=== PATIENT | male | born 1945 | race Caucasian/White ===

== ENCOUNTER 2020-07-17 09:31 | Inpatient (IN) | payer MEDICARE, SELFPAY ==
--- NOTE | ~2020-07-17 | CT_ITS ---
EXAMINATION: CT ABDOMEN AND PELVIS WITHOUT CONTRAST CLINICAL INFORMATION: GI bleeding. Evaluate for colitis. COMPARISON: Previous CT of the abdomen and pelvis June 2006 TECHNIQUE: Multidetector volumetric imaging was performed from the superior aspect of the liver through the pubic symphysis. Sagittal and coronal reformatted images were obtained on the technologist's workstation. This CT examination was performed using dose optimization techniques as appropriate, variously including the following: *Automated exposure control *Adjustment of mA and/or kV according to patient size (this includes techniques or standardized protocols for targeted exams where dose is matched to indication/reason for exam; i.e. extremities or head) *Use of iterative reconstruction technique DLP: 672 mGy-cm FINDINGS: LUNG BASES: The visualized lung bases are clear. There is bilateral pleural calcification, left greater than right. LIVER, GALLBLADDER, AND BILIARY TREE: There are small calcifications seen in the liver. The liver is otherwise unremarkable. There are gallstones in the gallbladder. There is no biliary duct dilatation. PANCREAS: Unremarkable. SPLEEN: There are small calcifications in the spleen ADRENAL GLANDS: Unremarkable. KIDNEYS AND URETERS: There is bilateral renal cortical thinning. The right kidney is smaller than the left. There is no hydronephrosis. There is mild dilatation of both ureters. BLADDER: The bladder is very distended. There bladder wall appears trabeculated. Findings are suggestive of bladder outlet obstruction. GASTROINTESTINAL TRACT: There is very mild diverticulosis of the colon. No evidence of colitis or diverticulitis is seen. Small and large bowel is otherwise normal. The appendix is normal. The stomach is normal. ABDOMINAL WALL: No significant hernia is appreciated. LYMPH NODES: Normal. VASCULAR: There is evidence of atherosclerotic disease. No aneurysm is seen. PELVIC VISCERA: The prostate gland does not appear enlarged. There is a low-attenuation seen centrally in the prostate gland questionable for TURP defect. OSSEOUS STRUCTURES: There are old T11 and L1 vertebral body compression fractures. There are degenerative changes of the spine CT/CT abdomen pelvis wo con IMPRESSION: Mild diverticulosis of the colon. No evidence of diverticulitis or colitis. Very distended bladder with trabeculated bladder wall suggestive of bladder outlet obstruction. Bilateral renal cortical thinning. Small right kidney. Small calcifications in the liver and spleen probably related to old granulomatous disease. Gallstones.
--- NOTE | ~2020-07-17 | XR_ITS ---
EXAMINATION: XR CHEST CLINICAL INFORMATION: GI bleeding COMPARISON: None TECHNIQUE: Frontal view of the chest was obtained. FINDINGS: No significant abnormality is noted involving the heart, lungs, mediastinum, bony thorax or soft tissues. XR/XR chest 1V IMPRESSION: Unremarkable examination.
[2020-07-17 09:42] VITALS: BP 121/64; BP 140/76; PULSE 66; PULSE 67; RESP 18; TEMP 36.7; O2SAT 100; O2SAT 98; BMI 27.9
--- NOTE | 2020-07-17 10:13 | ED_ITS ---
HPI - GI Bleed General Chief complaint: GI Bleed Stated complaint: ?gi bleed Time Seen by Provider: 07/17/20 10:05 Source: patient and EMS Mode of arrival: EMS Limitations: no limitations History of Present Illness HPI Narrative: 75-year-old male came in for evaluation of black stool. Black stool for the past 2 days, feeling generalized weakness, history of acid reflux. Patient is not taking any anticoagulation, patient otherwise declined chest pain/abdominal pain/nausea/or vomiting. Patient had history of GI bleeding in the past he was he was on aspirin. Related Data Allergies Allergy/AdvReac Type Severity Reaction Status Date / Time aspirin [ASPIRIN] Allergy Unknown THINS Unverified 12/03/19 16:32 BLOOD TOO MUCH Review of Systems Review of Systems: All other systems are reviewed and are negative Constitutional: Reports as per HPI and Reports no additional constitutional complaints Eyes: Reports as per HPI and Reports no additional eye complaints Reports system reviewed and no additional complaints, except as documented Cardiovascular: Reports as per HPI and Reports no additional cardiovascular complaints Respiratory: Reports as per HPI and Reports no additional respiratory complaints Gastrointestinal: Reports as per HPI and Reports no additional gastrointestinal complaints Genitourinary: Reports no additional female genitourinary complaints Musculoskeletal: Reports no additional musculoskeletal complaints Skin/Breast: Reports system reviewed and no additional complaints, except as docu Psychiatric: Reports no additional psychiatric complaints Endocrine: Reports no additional endocrine complaints Hematologic/Lymphatic: Reports no additional hematologic/lymphatic complaints Allergic/Immunologic: Reports no additional allergic/immunologic complaints Reports system reviewed and no additional complaints, except as documented and Reports Abnormal speech present [facility] Past Medical History Medical History (Updated 07/17/20 @ 12:52 by Leyda Santos MD) BPH (benign prostatic hyperplasia) CKD (chronic kidney disease), stage IV GERD (gastroesophageal reflux disease) HTN (hypertension) Rosacea Social History Social History (Updated 07/17/20 @ 12:27 by David Dale MD) Alcohol intake: current Smoking Status: Former smoker Smoked in Last 30 Days: No Use of substances other than those prescribed or required for medical reasons: No Advance Directives: Yes Advance Directives Information Provided: No Advance Directives on File: No Physical Exam Vital Signs: Vital Signs: Last Vital Signs Temp 98.0 F 07/17/20 09:42 Pulse 66 07/17/20 09:42 Resp 18 07/17/20 09:42 BP 121/64 07/17/20 09:42 Pulse Ox 98 07/17/20 09:42 Body Mass Index 27.9 Vital signs have been reviewed as appeared to be correct. Blood pressure normal. Heart rate normal. Respiration rate normal. Temperature normal. Oxygen saturation normal. Appearance: Alert. Oriented X3. No acute distress. Head: Normal external exam. Normocephalic. Atraumatic. No Quinones signs noted. No raccoon eyes noted Eyes: PERRLA. EOMI. Conjunctiva and sclera normal. Eyelids normal. ENT: TM's Normal. Pharynx normal. Uvula midline. Moist mucous membranes. No trismus noted. No drooling noted. No muffled voice noted. Neck: Normal inspection. Neck supple. FROM. No adenopathy. Thyroid Normal. No meningeal signs. No neck mass noted. CVS: Normal heart rate and rhythm. Heart sound normal. No murmurs noted. Pulses normal throughout. Respiratory: No respiratory distress. Painless inspiration. Breath sounds normal. No wheezes/rales/rhonchi noted. Chest nontender. No accessory muscle usage noted or decreased air movement noted. Abdomen: Soft and nontender. Bowel sounds normal in all 4 quadrants. No distention noted. No organomegaly noted. No visible injury noted. Rectal exam:black tarry stool. Back: No CVA tenderness. Full range of motion noted. Skin: Skin warm and dry. Normal skin color. Normal skin turgor. No rashes/lesions/lacerations noted. Extremities: No lower extremity edema. Extremities exhibit normal range of motion. Extremities nontender. Neuro: Oriented X 3. No motor deficit. No sensory deficit. Reflexes normal. Course Course Course Narrative: Assessment and plan. 75-year-old male with GI bleed /melena, CT was unremarkable except for dilated bladder, patient was able to void on his own with no complain of urine retention. Slight anemia. Will admit the patient for further GI evaluation. MDM - GI Bleed Lab Data Attestation: I reviewed the patient's lab results. Result diagrams: 07/17/20 10:27 07/17/20 10:27 Labs: Lab Results 07/17/20 07/17/20 07/17/20 Range/Units 10:27 10:27 10:27 WBC 8.1 (4.8-10.8) X10*3/uL RBC 3.07 L (4.60-5.80) X10*6/uL Hgb 10.0 L (14.0-18.0) g/dl Hct 29.3 L (42-52) % MCV 95.4 (80-98) fL MCH 32.6 (27.0-33.0) pg MCHC 34.1 (31.0-36.0) g/dl RDW 14.7 (11.0-16.0) % Plt Count 158 L (160-400) X10*3/uL MPV 11.2 (9.4-12.4) fL Immature Gran % (Auto) 1.8 H (0.0-0.4) % Neut % (Auto) 65.9 (45-73) % Lymph % (Auto) 20.7 (20-40) % [place] % (Auto) 9.2 (2-11) % Eos % (Auto) 2.0 (0-4) % Baso % (Auto) 0.4 (0-2) % Lymph # (Auto) 1.7 (1.2-4.9) X10*3/uL [place] # (Auto) 0.8 (0.1-1.2) X10*3/uL Eos # (Auto) 0.2 (0.0-0.4) X10*3/uL Baso # (Auto) 0.0 (0.0-0.2) X10*3/uL Abs Immat Gran (auto) 0.15 H (0.00-0.03) X10*3/uL Absolute Neuts (auto) 5.4 (2.0-8.3) X10*3/uL Absolute Nucleated RBC 0.000 (0.0-0.012) X10*3/uL Nucleated RBC % (auto) 0.0 (0.0-0.2) /100WBC Sodium 139 (135-145) mmol/L Potassium 4.2 (3.3-5.1) mmol/L Chloride 106 (96-108) mmol/L Carbon Dioxide 28 (22-29) mmol/L Anion Gap 9 L (12-20) BUN 49 H (9-16) mg/dL Creatinine 2.15 H (0.5-1.4) mg/dL Estim Creat Clear Calc 32.2 Estimated GFR 30 Random Glucose 123 H (60-115) mg/dL Calcium 9.2 (8.4-10.2) mg/dL Total Bilirubin 0.5 (0.0-1.0) mg/dL Direct Bilirubin 0.2 (0.0-0.5) mg/dL AST 9 (5-37) U/L ALT 11 (0-40) U/L Alkaline Phosphatase 30 L (39-117) U/L Troponin I High Sens (<3.5-35.0) ng/L B-Natriuretic Peptide (<100) pg/mL Total Protein 4.4 L (6.5-8.0) g/dL Albumin 3.0 L (3.5-5.0) g/dL Lipase 20 (8-78) U/L Urine Color Urine Appearance Urine pH (5.0-8.0) Ur Specific [place] (1.005-1.025) Urine Protein (NEG-TRACE) MG/DL Urine Glucose (UA) (NEG) MG/DL Urine Ketones (NEG) MG/DL Urine Blood (NEG) Urine Nitrite (NEG) Ur Leukocyte Esterase (NEG) Stool Occult Blood (NEGATIVE) COVID-19 (JULIAN) (Negative) COVID-19 Clin Com 07/17/20 07/17/20 07/17/20 Range/Units 10:27 10:27 10:27 WBC (4.8-10.8) X10*3/uL RBC (4.60-5.80) X10*6/uL Hgb (14.0-18.0) g/dl Hct (42-52) % MCV (80-98) fL MCH (27.0-33.0) pg MCHC (31.0-36.0) g/dl RDW (11.0-16.0) % Plt Count (160-400) X10*3/uL MPV (9.4-12.4) fL Immature Gran % (Auto) (0.0-0.4) % Neut % (Auto) (45-73) % Lymph % (Auto) (20-40) % [place] % (Auto) (2-11) % Eos % (Auto) (0-4) % Baso % (Auto) (0-2) % Lymph # (Auto) (1.2-4.9) X10*3/uL [place] # (Auto) (0.1-1.2) X10*3/uL Eos # (Auto) (0.0-0.4) X10*3/uL Baso # (Auto) (0.0-0.2) X10*3/uL Abs Immat Gran (auto) (0.00-0.03) X10*3/uL Absolute Neuts (auto) (2.0-8.3) X10*3/uL Absolute Nucleated RBC (0.0-0.012) X10*3/uL Nucleated RBC % (auto) (0.0-0.2) /100WBC Sodium (135-145) mmol/L Potassium (3.3-5.1) mmol/L Chloride (96-108) mmol/L Carbon Dioxide (22-29) mmol/L Anion Gap (12-20) BUN (9-16) mg/dL Creatinine (0.5-1.4) mg/dL Estim Creat Clear Calc Estimated GFR Random Glucose (60-115) mg/dL Calcium (8.4-10.2) mg/dL Total Bilirubin (0.0-1.0) mg/dL Direct Bilirubin (0.0-0.5) mg/dL AST (5-37) U/L ALT (0-40) U/L Alkaline Phosphatase (39-117) U/L Troponin I High Sens 41.6 H (<3.5-35.0) ng/L B-Natriuretic Peptide 369 H (<100) pg/mL Total Protein (6.5-8.0) g/dL Albumin (3.5-5.0) g/dL Lipase (8-78) U/L Urine Color Urine Appearance Urine pH (5.0-8.0) Ur Specific [place] (1.005-1.025) Urine Protein (NEG-TRACE) MG/DL Urine Glucose (UA) (NEG) MG/DL Urine Ketones (NEG) MG/DL Urine Blood (NEG) Urine Nitrite (NEG) Ur Leukocyte Esterase (NEG) Stool Occult Blood POSITIVE (NEGATIVE) COVID-19 (JULIAN) Negative (Negative) COVID-19 Clin Com See Note 07/17/20 Range/Units 11:54 WBC (4.8-10.8) X10*3/uL RBC (4.60-5.80) X10*6/uL Hgb (14.0-18.0) g/dl Hct (42-52) % MCV (80-98) fL MCH (27.0-33.0) pg MCHC (31.0-36.0) g/dl RDW (11.0-16.0) % Plt Count (160-400) X10*3/uL MPV (9.4-12.4) fL Immature Gran % (Auto) (0.0-0.4) % Neut % (Auto) (45-73) % Lymph % (Auto) (20-40) % [place] % (Auto) (2-11) % Eos % (Auto) (0-4) % Baso % (Auto) (0-2) % Lymph # (Auto) (1.2-4.9) X10*3/uL [place] # (Auto) (0.1-1.2) X10*3/uL Eos # (Auto) (0.0-0.4) X10*3/uL Baso # (Auto) (0.0-0.2) X10*3/uL Abs Immat Gran (auto) (0.00-0.03) X10*3/uL Absolute Neuts (auto) (2.0-8.3) X10*3/uL Absolute Nucleated RBC (0.0-0.012) X10*3/uL Nucleated RBC % (auto) (0.0-0.2) /100WBC Sodium (135-145) mmol/L Potassium (3.3-5.1) mmol/L Chloride (96-108) mmol/L Carbon Dioxide (22-29) mmol/L Anion Gap (12-20) BUN (9-16) mg/dL Creatinine (0.5-1.4) mg/dL Estim Creat Clear Calc Estimated GFR Random Glucose (60-115) mg/dL Calcium (8.4-10.2) mg/dL Total Bilirubin (0.0-1.0) mg/dL Direct Bilirubin (0.0-0.5) mg/dL AST (5-37) U/L ALT (0-40) U/L Alkaline Phosphatase (39-117) U/L Troponin I High Sens (<3.5-35.0) ng/L B-Natriuretic Peptide (<100) pg/mL Total Protein (6.5-8.0) g/dL Albumin (3.5-5.0) g/dL Lipase (8-78) U/L Urine Color YELLOW Urine Appearance CLEAR Urine pH 7.5 (5.0-8.0) Ur Specific [place] 1.015 (1.005-1.025) Urine Protein TRACE (NEG-TRACE) MG/DL Urine Glucose (UA) NEG (NEG) MG/DL Urine Ketones NEG (NEG) MG/DL Urine Blood NEG (NEG) Urine Nitrite NEG (NEG) Ur Leukocyte Esterase NEG (NEG) Stool Occult Blood (NEGATIVE) COVID-19 (JULIAN) (Negative) COVID-19 Clin Com Imaging Data Chest x-ray: My impression: Unremarkable CT scan - abdomen: Radiologist's impression: Mild diverticulosis of the colon. No evidence of diverticulitis or colitis. Very distended bladder with trabeculated bladder wall suggestive of bladder outlet obstruction. Bilateral renal cortical thinning. Small right kidney. Small calcifications in the liver and spleen probably related to old granulomatous disease. Gallstones. Discharge Plan Discharge Clinical Impression: Melena Patient Disposition: Admitted As Inpatient
[2020-07-17] MEDS: 0.9 % Sodium Chloride 1,000 ML 999 ML IVCONT (10:31)
[2020-07-17 10:33] LABS: MANUAL DIFF FLAG NO
[2020-07-17 10:35] LABS: OBS Int Ctl Valid YES; OBS1 POSITIVE (NEGATIVE)
[2020-07-17 10:38] LABS: Basophils Percent Auto 0.4 % (0-2); Eosinophils Absolute Auto 0.2 X10*3/uL (0.0-0.4); Hematocrit 29.3 % (42-52); Imm Gran Abs Auto 0.15 X10*3/uL (0.00-0.03); Imm Gran Pct Auto 1.8 % (0.0-0.4); Lymphocytes Absolute Auto 1.7 X10*3/uL (1.2-4.9); Lymphocytes Percent Auto 20.7 % (20-40); Mean Corpuscular HGB Conc 34.1 g/dl (31.0-36.0); Mean Corpuscular Hemoglobin 32.6 pg (27.0-33.0); Mean Corpuscular Volume 95.4 fL (80-98); Mean Platelet Volume 11.2 fL (9.4-12.4); Monocytes Absolute Auto 0.8 X10*3/uL (0.1-1.2); Monocytes Percent Auto 9.2 % (2-11); Neutrophils Absolute Auto 5.4 X10*3/uL (2.0-8.3); Neutrophils Percent Auto 65.9 % (45-73); Platelet Count 158 X10*3/uL (160-400); Red Blood Count 3.07 X10*6/uL (4.60-5.80); Red Cell Distribution Width 14.7 % (11.0-16.0); White Blood Count 8.1 X10*3/uL (4.8-10.8)
[2020-07-17 10:54] LABS: COVID-19 Test Negative (Negative)
[2020-07-17] MEDS: Pantoprazole Sodium 40 MG/10 ML VIAL IVPUSH ×2 (10:56→17:25)
[2020-07-17 11:01] LABS: Lipase 20 U/L (8-78)
[2020-07-17 11:03] LABS: Alanine Aminotransferase 11 U/L (0-40); Alkaline Phosphatase 30 U/L (39-117); Aspartate Amino Transferase 9 U/L (5-37); Bilirubin Direct 0.2 mg/dL (0.0-0.5); Bilirubin Total 0.5 mg/dL (0.0-1.0); Total Protein 4.4 g/dL (6.5-8.0)
[2020-07-17 11:13] LABS: B Type Natriuretic Peptide 369 pg/mL (<100); Troponin-I High Sensitivity 41.6 ng/L (<3.5-35.0)
[2020-07-17 12:00] LABS: Glucose Urine UA NEG (NEG); Leukocyte Esterase Urine NEG (NEG); Nitrite Urine NEG (NEG); PH 7.5 (5.0-8.0); Specific Gravity - Urine 1.015 (1.005-1.025); Urine Blood NEG (NEG); Urine Ketones NEG (NEG); Urine Protein TRACE MG/DL (NEG-TRACE)
[2020-07-17 12:01] LABS: Appearance Urine CLEAR; Color Urine YELLOW
[2020-07-17 12:12] LABS: Anion Gap 9 (12-20); Blood Urea Nitrogen 49 mg/dL (9-16); Calcium 9.2 mg/dL (8.4-10.2); Carbon Dioxide 28 mmol/L (22-29); Chloride 106 mmol/L (96-108); Creatinine Clr Calc Pharmacy 32.2; Estimated Glomerular Filt Rate 30; Glucose Random 123 mg/dL (60-115); Potassium 4.2 mmol/L (3.3-5.1); Sodium 139 mmol/L (135-145)
--- NOTE | 2020-07-17 12:25 | PM.EVENT ---
Event Note Date of Service: 07/17/20 Event Note: 75M presented with melena for several days melena likely upper gi bleed iv ppi gi eval CKD IV stable HTN hold antihypertensives for now BPH, urinary retention on CT check PVR continue terazosin
--- NOTE | 2020-07-17 14:18 | PM.IMHP ---
History of Present Illness Date of Service: 07/17/20 Chief Complaint: Black stool 75-year-old man presenting to the ER with complaints of black stool he reports on that he noticed in the toilet that his stool was black. He reports a history of gastric ulcer in the past. Denies taking large doses of NSAIDs. He is not on any anticoagulation. He developed some flank pain and decided to come to the ER to be evaluated. Denies any history of abdominal pain, nausea, vomiting, diarrhea. He reports only drinking about 1 beer a day if that. His initial hemoglobin and hematocrit was 10.00/29.3, creatinine 2.15 with history of chronic kidney disease, initial troponin 41.6 with no complaints of chest pain, BNP 369, stool occult was positive, COVID-[address] showed mild diverticulosis with no evidence of diverticulitis or colitis. He did have a very distended bladder suggestive of a bladder outlet obstruction however he urinated 600ml in the ED. he was given IV Protonix and 1 L of IV fluid in the ER. He will be admitted for further management treatment of acute upper GI bleed. Review of Systems Review of Systems: Denies any recent fever chills or decrease in appetite respiratory denies any shortness of breath coverage production cardiovascular is adjustment of any PND or edema gastrointestinal denies any dysphagia abdominal pain nausea vomiting or diarrhea genitourinary denies any dysuria frequency or hematuria musculoskeletal denies any joint pain or swelling neuropsych denies any weakness or seizures all other systems reviewed are negative [facility] Medical History (Updated 07/17/20 @ 12:53 by Leyda Santos MD) BPH (benign prostatic hyperplasia) CKD (chronic kidney disease), stage IV GERD (gastroesophageal reflux disease) HTN (hypertension) Rosacea Social History (Updated 07/17/20 @ 12:27 by David Dale MD) Alcohol intake: current Smoking Status: Former smoker Smoked in Last 30 Days: No Use of substances other than those prescribed or required for medical reasons: No Advance Directives: Yes Advance Directives Information Provided: No Advance Directives on File: No Meds Allergies Allergy/AdvReac Type Severity Reaction Status Date / Time aspirin [ASPIRIN] Allergy Unknown THINS Unverified 12/03/19 16:32 BLOOD TOO MUCH Active Medications: Current Medications Generic Name Dose Route Start Last Admin Trade Name Freq PRN Reason Stop Dose Admin Acetaminophen 650 mg 05/02/21 13:54 Acetaminophen 325 Mg Tablet PO Q6H PRN Pain, Mild (Pain Scale 1-3) Metoprolol Tartrate 50 mg 07/17/20 21:00 Metoprolol Tartrate 100 Mg Tablet PO BEDTIME [facility] Protocol Metoprolol Tartrate 100 mg 07/18/20 09:00 Metoprolol Tartrate 100 Mg Tablet PO DAILY [facility] Protocol Non-Formulary Medication 2 mg 07/18/20 09:00 Terazosin PO DAILY [facility] Ondansetron HCl 4 mg 07/17/20 13:54 Ondansetron Hcl 4 Mg/2 Ml Vial IVPUSH Q8H PRN Nausea and Vomiting Pantoprazole Sodium 40 mg 07/17/20 16:30 Pantoprazole Sodium 40 Mg/10 Ml Vial IVPUSH [id number] [facility] Pharmacy Consult 1 each 07/17/20 10:05 Consult Rx Perform Med Rec MISCELLANE ONCE PRN Consult order Sodium Chloride 3 ml 07/17/20 16:00 0.9 % Sodium Chloride Flush 3 Ml Syringe IVFLUSH QSHIFT [facility] Home Medications Medication Instructions Recorded Confirmed Last Taken Type amlodipine 1 tab PO DAILY 07/17/20 07/17/20 Unknown History lisinopril 1 tab PO DAILY 07/17/20 07/17/20 Unknown History metoprolol tartrate 50 mg PO BEDTIME 07/17/20 07/17/20 Unknown History metoprolol tartrate 100 mg PO DAILY 07/17/20 07/17/20 Unknown History terazosin 2 mg PO DAILY 07/17/20 07/17/20 Unknown History Physical Exam Vital Signs and Narrative: Vital Signs: Last Vital Signs Temp 98.0 F 07/17/20 09:42 Pulse 66 07/17/20 09:42 Resp 18 07/17/20 09:42 BP 121/64 07/17/20 09:42 Pulse Ox 98 07/17/20 09:42 Body Mass Index 27.9 Appearing in no acute distress head is normocephalic atraumatic eyes pupils are PERRLA sclera is anicteric mouth throat mucous membranes are intact and moist neck is supple no lymphadenopathy, no JVD noted lung sounds are clear to auscultation heart regular rate rhythm, clear S1, S2 positive bowel sounds, abdomen is soft, nontender neuro patient is alert x3, no focal deficits Results Labs CBC and Chem 7: 07/17/20 17:05 07/17/20 10:27 Labs: Laboratory Results - last 24 hr 07/17/20 07/17/20 07/17/20 10:27 10:27 10:27 MCV 95.4 MCH 32.6 MCHC 34.1 RDW 14.7 Plt Count 158 L MPV 11.2 Immature Gran % (Auto) 1.8 H Neut % (Auto) 65.9 Lymph % (Auto) 20.7 [place] % (Auto) 9.2 Eos % (Auto) 2.0 Baso % (Auto) 0.4 Lymph # (Auto) 1.7 [place] # (Auto) 0.8 Eos # (Auto) 0.2 Baso # (Auto) 0.0 Abs Immat Gran (auto) 0.15 H Absolute Neuts (auto) 5.4 Absolute Nucleated RBC 0.000 Nucleated RBC % (auto) 0.0 Anion Gap 9 L Estim Creat Clear Calc 32.2 Estimated GFR 30 Random Glucose 123 H Calcium 9.2 Total Bilirubin 0.5 Direct Bilirubin 0.2 AST 9 ALT 11 Alkaline Phosphatase 30 L Troponin I High Sens B-Natriuretic Peptide Total Protein 4.4 L Albumin 3.0 L Lipase 20 Urine Color Urine Appearance Urine pH Ur Specific [place] Urine Protein Urine Glucose (UA) Urine Ketones Urine Blood Urine Nitrite Ur Leukocyte Esterase Stool Occult Blood COVID-19 (JULIAN) COVID-[employer] 07/17/20 07/17/20 07/17/20 10:27 10:27 10:27 MCV MCH MCHC RDW Plt Count MPV Immature Gran % (Auto) Neut % (Auto) Lymph % (Auto) [place] % (Auto) Eos % (Auto) Baso % (Auto) Lymph # (Auto) [place] # (Auto) Eos # (Auto) Baso # (Auto) Abs Immat Gran (auto) Absolute Neuts (auto) Absolute Nucleated RBC Nucleated RBC % (auto) Anion Gap Estim Creat Clear Calc Estimated GFR Random Glucose Calcium Total Bilirubin Direct Bilirubin AST ALT Alkaline Phosphatase Troponin I High Sens 41.6 H B-Natriuretic Peptide 369 H Total Protein Albumin Lipase Urine Color Urine Appearance Urine pH Ur Specific [place] Urine Protein Urine Glucose (UA) Urine Ketones Urine Blood Urine Nitrite Ur Leukocyte Esterase Stool Occult Blood POSITIVE COVID-19 (JULIAN) Negative COVID-19 [employer] Com See Note 07/17/20 11:54 MCV MCH MCHC RDW Plt Count MPV Immature Gran % (Auto) Neut % (Auto) Lymph % (Auto) [place] % (Auto) Eos % (Auto) Baso % (Auto) Lymph # (Auto) [place] # (Auto) Eos # (Auto) Baso # (Auto) Abs Immat Gran (auto) Absolute Neuts (auto) Absolute Nucleated RBC Nucleated RBC % (auto) Anion Gap Estim Creat Clear Calc Estimated GFR Random Glucose Calcium Total Bilirubin Direct Bilirubin AST ALT Alkaline Phosphatase Troponin I High Sens B-Natriuretic Peptide Total Protein Albumin Lipase Urine Color YELLOW Urine Appearance CLEAR Urine pH 7.5 Ur Specific [place] 1.015 Urine Protein TRACE Urine Glucose (UA) NEG Urine Ketones NEG Urine Blood NEG Urine Nitrite NEG Ur Leukocyte Esterase NEG Stool Occult Blood COVID-19 (JULIAN) COVID-19 Clin Com Imaging Radiologist's Impressions: Impressions Abdomen/Pelvis CT 07/17/20 10:05 IMPRESSION: Mild diverticulosis of the colon. No evidence of diverticulitis or colitis. Very distended bladder with trabeculated bladder wall suggestive of bladder outlet obstruction. Bilateral renal cortical thinning. Small right kidney. Small calcifications in the liver and spleen probably related to old granulomatous disease. Gallstones. Chest X-Ray 07/17/20 10:06 IMPRESSION: Unremarkable examination. Assessment and Plan (1) Melena: Status: Acute 75-year-old man admitted with tarry stool, upper GI bleed. Denies any history of excessive NSAID use, not on anticoagulation. Reports history of ulcer in the past. Upper GI bleed. Black tarry stool noted approximately 3 days ago. -GI consult, likely need EGD -IV protonix -trend HH -clear liquid diet Urinary retention. Hx of this in the past. Patient refusing rees cath, wants to straight cath himself. -Rees catheter pref but will add bladder scan orders every shift and st cath for greater than 500ml -if no improvement consider urology consultation -increase terazosin to 4mg Hypertension stable. Stable. -In light of GI bleed will hold amlodipine and lisinopril to avoid hypotension if any further blood loss should occur. -Continue beta-marisol Chronic kidney disease. Sees Dr. Hirsch as an outpatient. -Follow BMP DVT prophylaxis with mechanical compression boots due to GI bleed Full code Attending: Dr. Dale
--- NOTE | 2020-07-17 15:43 | PC.NURSE ---
pt admitted as inpt, but now resistant to admission, hospitalist at bedside w this rn to consult about staying and barriers to staying, pt now agreeable to care plan, family updated. migueltm.
[2020-07-17 16:33] VITALS: BP 126/66; PULSE 64; RESP 18; TEMP 36.5; O2SAT 99
[2020-07-17 17:20] LABS: Hematocrit 29.5 % (42-52); Hemoglobin 10.1 g/dl (14.0-18.0)
[2020-07-17] MEDS: LORazepam 0.5 MG TABLET 0.25 MG PO (17:25)
--- NOTE | 2020-07-17 17:26 | MHC.SHP ---
Pre-Procedural Eval Section A The patient is an INPATIENT: Yes The History & Physical has been completed within 30 days and I have reviewed it.: Yes Section B Chief Complaint: GI bleed Allergies: Allergies Allergy/AdvReac Type Severity Reaction Status Date / Time aspirin [ASPIRIN] Allergy Unknown THINS Unverified 12/03/19 16:32 BLOOD TOO MUCH Plan Diagnosis/Plan: Unchanged I have reviewed the history and physical and performed a pertinent physical examination on my patient. No changes have occurred unless specified.
--- NOTE | 2020-07-17 17:28 | P.EN_ITS ---
Event Note Date of Service: 07/17/20 Event Note: GI Consult-Full note dictated Imp: UGI Bleed with melena x 4 days and associated anemia. He c/o frequent heartburn and reflux symptoms for which he takes prn Gracie [place]. He denies any N/V, abdominal pain, or dysphagia. He denies using any aspirin or NSAIDs. He de scribes a history of a gastric ulcer with bleeding about 40 years ago. He denies any hematochezia. His last BM was yesterday. Diff dx: Esophagitis, PUD. Rec: EGD with MAC on 07/18. Full consent obtained from him for this, including risks of bleeding and perforation. Follow Hgb, continue PPI, check PT/INR. NPO after MN. D/W patient in detail and he is comfortable with this plan. Of note, the patient is eager to go home and may want to be discharged after the endoscopy tomorrow. I told him that may be possible depending on the results and his clinical course. Thanks.
--- NOTE | 2020-07-17 17:34 | PC.NURSE ---
pt medicated per emar, consulted w pt regarding order for rees catheter. pt sts he would like to use a straight cath kit to self catheterize, pt is comfortable and familiar w procedure. hospitalist service notified and agreeable to plan of care so long as strict i&o documentation is maintained. pt provided w small size kit d/t present strictures.
[2020-07-17 19:44] VITALS: BP 129/68; PULSE 73; RESP 16; O2SAT 99
[2020-07-17 20:02] VITALS: BP 150/70; PULSE 65; RESP 20; TEMP 36.3; O2SAT 99
[2020-07-17 20:23] VITALS: BP 150/70; PULSE 65
[2020-07-17] MEDS: Metoprolol Tartrate 100 MG TABLET 50 MG PO (20:23)
[2020-07-17] MEDS: 0.9 % Sodium Chloride Flush 3 ML SYRINGE IVFLUSH (20:24)
[2020-07-17 20:46] LABS: Hematocrit 29.8 % (42-52); Hemoglobin 10.4 g/dl (14.0-18.0)
--- NOTE | 2020-07-17 22:38 | CONS_ITS ---
DATE OF SERVICE: 07/17/2020 REASON FOR CONSULTATION: Melena and anemia. HISTORY OF PRESENT ILLNESS: This has been obtained from the patient and the medical record. The patient is a 75-year-old male, who describes the onset of melena on July 14. This occurred daily up until presenting to the ER today. He describes a distant history of a gastric ulcer by his description from over 40 years ago with some bleeding. He did not require surgery, but does think he needed transfusions. He has had no problems since that time. Over the past 3 or 4 days, he has been noticing the black stool, but without any nausea, vomiting, abdominal pain, nor lightheadedness. He has not been using any aspirin nor NSAIDs. However, he does complain of lot of heartburn for which he takes p.r.n. Gracie-Mathews. He denies any dysphagia, anorexia, early satiety, nor weight loss. He denies any hematochezia. He has never had a colonoscopy. Since arrival in the ER, he has been hemodynamically stable. He has had no further bowel movements and again there has been no vomiting. His initial hemoglobin on presentation was 10.0 and repeat a short while ago was 10.1. His BUN was 49 with a creatinine of 2.15. MEDICATIONS: At home included amlodipine, lisinopril, metoprolol, and terazosin. PAST MEDICAL HISTORY: Renal insufficiency for which he sees Dr. Alamo. Hypertension. He denies history of diabetes, [place], stroke, nor lung disease. PAST SURGICAL HISTORY: His surgeries include a right inguinal hernia. SOCIAL HISTORY: He is . He does not smoke and drinks occasional beer. FAMILY HISTORY: Noncontributory. REVIEW OF SYSTEMS: CONSTITUTIONAL: He has been feeling well without any anorexia. SKIN: No rash, no pruritus. CARDIAC: No chest pain. PULMONARY: No cough, no hemoptysis. GI: As above. URINARY: No dysuria, no hematuria. PHYSICAL EXAMINATION: GENERAL: The patient is a pleasant, alert, comfortable appearing male. SKIN: Warm and dry. HEENT: Anicteric sclerae. NECK: Supple. CHEST: Clear. CARDIAC: Normal S1, S2. ABDOMEN: Soft, nondistended, nontender without mass. EXTREMITIES: Without edema. LABORATORY DATA: As above. White blood cell count 8.1, platelets 158,000, hemoglobin 10.1, MCV 95. Normal electrolytes. BUN 49, creatinine 2.15, calcium 9.2. Normal liver profile. Lipase 20. COVID test was negative. CT scan of the abdomen and pelvis describes some mild diverticulosis, but no sign of diverticulitis nor colitis. There was a distended bladder. Chest x-ray was unremarkable. IMPRESSION: Given the patient's clinical history, this seems very consistent with an upper gastrointestinal bleed quite possibly related to significant esophagitis given his history of significant heartburn symptoms. Other possibilities would be that of peptic ulcer disease. At the present time, he appears very stable without any signs of active bleeding. He is hemodynamically stable and his abdominal exam is benign. At this point, I would recommend upper endoscopy with monitored anesthesia care tomorrow. The procedure can be done sooner if he shows signs of any active bleeding. Full consent obtained from him for this, including risks of bleeding and perforation. In the meantime, I would continue his IV PPI and continue to follow his hemoglobin carefully. I would also check a PT with INR. He will be kept n.p.o. after midnight. Full consent has been obtained from him for the endoscopy, including risks of bleeding and perforation. This has all been discussed with him in detail, and he is comfortable with the plan. Thank you this consultation. MD GINGER Linn/DEBORA / [id number]
[2020-07-17 23:46] VITALS: BP 155/86; PULSE 72; RESP 18; TEMP 36.6; O2SAT 97
[2020-07-18] VITALS (12 sets, daily range): BP systolic 86–171; BP diastolic 39–96; PULSE 66–82; RESP 12–18; TEMP 36.2–37.6; O2SAT 96–100
[2020-07-18 02:35] LABS: Hematocrit 29.6 % (42-52); Hemoglobin 10.3 g/dl (14.0-18.0)
[2020-07-18] MEDS: Pantoprazole Sodium 40 MG/10 ML VIAL IVPUSH (06:10)
[2020-07-18 06:38] LABS: MANUAL DIFF FLAG NO
[2020-07-18 06:53] LABS: Prothrombin Time 12.4 SEC (10.8-13.0)
[2020-07-18 06:58] LABS: Basophils Percent Auto 0.4 % (0-2); Eosinophils Absolute Auto 0.2 X10*3/uL (0.0-0.4); Eosinophils Percent Auto 2.2 % (0-4); Hematocrit 29.3 % (42-52); Imm Gran Abs Auto 0.07 X10*3/uL (0.00-0.03); Lymphocytes Absolute Auto 1.5 X10*3/uL (1.2-4.9); Lymphocytes Percent Auto 22.5 % (20-40); Mean Corpuscular HGB Conc 34.1 g/dl (31.0-36.0); Mean Corpuscular Hemoglobin 32.6 pg (27.0-33.0); Mean Corpuscular Volume 95.4 fL (80-98); Mean Platelet Volume 11.7 fL (9.4-12.4); Monocytes Absolute Auto 0.6 X10*3/uL (0.1-1.2); Monocytes Percent Auto 8.4 % (2-11); Neutrophils Absolute Auto 4.4 X10*3/uL (2.0-8.3); Neutrophils Percent Auto 65.5 % (45-73); Platelet Count 150 X10*3/uL (160-400); Red Blood Count 3.07 X10*6/uL (4.60-5.80); Red Cell Distribution Width 14.6 % (11.0-16.0); White Blood Count 6.8 X10*3/uL (4.8-10.8)
[2020-07-18 07:13] LABS: Anion Gap 9 (12-20); Blood Urea Nitrogen 35 mg/dL (9-16); Calcium 8.5 mg/dL (8.4-10.2); Carbon Dioxide 25 mmol/L (22-29); Chloride 111 mmol/L (96-108); Creatinine Clr Calc Pharmacy 40.7; Estimated Glomerular Filt Rate 39; Glucose Random 102 mg/dL (60-115); Potassium 3.9 mmol/L (3.3-5.1); Sodium 141 mmol/L (135-145)
[2020-07-18] MEDS: 0.9 % Sodium Chloride Flush 3 ML SYRINGE IVFLUSH (08:46)
[2020-07-18] MEDS: Metoprolol Tartrate 100 MG TABLET PO (12:26)
--- NOTE | 2020-07-18 13:35 | MHC.CM.PN ---
met with pt who lives with his they have not had or needed services in the pastpt does not have a pcp he stsesa he goes to urgent care when he has a medical issue ,gave pt a phamplet about c providers..sonya explained that he would not mbe able to get servceis if he does not have a pcp.he declines..dc plan home no services
--- NOTE | 2020-07-18 14:38 | MHC.CM.PN ---
pt dcd hme no skilled services are indicated
--- NOTE | 2020-07-18 15:41 | P.CONAN_ITS ---
[facility] Active Problems Active Problems: All Active Problems (Updated 07/17/20 @ 12:53 by Leyda Santos MD) Anemia (Acute) GERD (gastroesophageal reflux disease) (Acute) BPH (benign prostatic hyperplasia) (Acute) Melena (Acute) CKD (chronic kidney disease), stage IV (Acute) HTN (hypertension) (Acute) Past Medical History Medical History BPH (benign prostatic hyperplasia) CKD (chronic kidney disease), stage IV GERD (gastroesophageal reflux disease) HTN (hypertension) Rosacea Social History Social History Household Members: Spouse Housing: House Do you presently have visiting nurse or other home services: No Alcohol intake: current Smoking Status: Former smoker Smoked in Last 30 Days: No Patient Interested in Nicotine Replacement: No Patient Given Instructions on How to Stop Smoking: No Second Hand Smoke Exposure: No Use of substances other than those prescribed or required for medical reasons: No Currently Displaying Signs/Symptoms of Drug Intoxication Withdrawal: No Any prior treatment program specific to substance use: No Have you been hit, kicked, punched, or otherwise hurt by someone within the past year? If so, by whom?: No Do you feel safe in your current relationship?: Yes Is there a partner from a previous relationship who is making you feel unsafe now?: No Are you made to feel afraid or neglected: No Are you DNR?: No Advance Directives: Yes Advance Directives Information Provided: No Advance Directives on File: No Advance Directives Date on File: 07/17/20 Do you have thoughts of harming others: None Do you have a plan to hurt others: No Plan Recently lost weight without trying: No Eating poorly because of decreased appetite: No Nutrition Risks: No Nutritional Risk Poor oral hygiene: No Meds Allergies Allergy/AdvReac Type Severity Reaction Status Date / Time aspirin [ASPIRIN] Allergy Unknown THINS Verified 07/18/20 15:02 BLOOD TOO MUCH Active Medications: Current Medications Generic Name Dose Route Start Last Admin Trade Name Freq PRN Reason Stop Dose Admin Acetaminophen 650 mg 07/17/20 13:54 Acetaminophen 325 Mg Tablet PO Q6H PRN Pain, Mild (Pain Scale 1-3) Doxazosin Mesylate 4 mg 07/18/20 09:00 07/18/20 08:41 Doxazosin Mesylate 2 Mg Tablet PO Not Given DAILY [facility] Lorazepam 0.25 mg 07/17/20 16:34 07/17/20 17:25 Lorazepam 0.5 Mg Tablet PO 0.25 mg Q8H PRN Administration anxiety Metoprolol Tartrate 50 mg 07/17/20 21:00 07/17/20 20:23 Metoprolol Tartrate 100 Mg Tablet PO 50 mg BEDTIME [facility] Administration Protocol Metoprolol Tartrate 100 mg 07/18/20 09:00 07/18/20 12:26 Metoprolol Tartrate 100 Mg Tablet PO 100 mg DAILY [facility] Administration Protocol Ondansetron HCl 4 mg 07/17/20 13:54 Ondansetron Hcl 4 Mg/2 Ml Vial IVPUSH Q8H PRN Nausea and Vomiting Pantoprazole Sodium 40 mg 07/17/20 16:30 07/18/20 06:10 Pantoprazole Sodium 40 Mg/10 Ml Vial IVPUSH 40 mg BID@0630,1630 [facility] Administration Pharmacy Consult 1 each 07/17/20 10:05 Consult Rx Perform Med Rec MISCELLANE ONCE PRN Consult order Sodium Chloride 3 ml 07/17/20 16:00 07/18/20 08:46 0.9 % Sodium Chloride Flush 3 Ml Syringe IVFLUSH 3 ml QSHIFT [facility] Administration Home Medications Medication Instructions Recorded Confirmed Last Taken Type amlodipine 1 tab PO DAILY 07/17/20 07/17/20 Unknown History lisinopril 1 tab PO DAILY 07/17/20 07/17/20 Unknown History metoprolol tartrate 50 mg PO BEDTIME 07/17/20 07/17/20 Unknown History metoprolol tartrate 100 mg PO DAILY 07/17/20 07/17/20 Unknown History terazosin 2 mg PO DAILY 07/17/20 07/17/20 Unknown History Exam Exam Date and Time: July 18, 2020 1541 Height,Weight and Vital Signs: Height 5 ft 10 in Weight 88.451 kg Last Vital Signs Temp 98.2 F 07/18/20 15:03 Pulse 66 07/18/20 15:03 Resp 16 07/18/20 15:03 BP 150/70 H 07/18/20 15:03 Pulse Ox 97 07/18/20 15:03 Pertinent Lab Results Pertinent Lab Results: Laboratory Tests 07/17/20 07/17/20 07/17/20 10:27 10:27 10:27 WBC 8.1 RBC 3.07 L Hgb 10.0 L Hct 29.3 L MCV 95.4 MCH 32.6 MCHC 34.1 RDW 14.7 Plt Count 158 L MPV 11.2 Immature Gran % (Auto) 1.8 H Neut % (Auto) 65.9 Lymph % (Auto) 20.7 [place] % (Auto) 9.2 Eos % (Auto) 2.0 Baso % (Auto) 0.4 Lymph # (Auto) 1.7 [place] # (Auto) 0.8 Eos # (Auto) 0.2 Baso # (Auto) 0.0 Abs Immat Gran (auto) 0.15 H Absolute Neuts (auto) 5.4 Absolute Nucleated RBC 0.000 Nucleated RBC % (auto) 0.0 PT INR Sodium 139 Potassium 4.2 Chloride 106 Carbon Dioxide 28 Anion Gap 9 L BUN 49 H Creatinine 2.15 H Estim Creat Clear Calc 32.2 Estimated GFR 30 Random Glucose 123 H Calcium 9.2 Total Bilirubin 0.5 Direct Bilirubin 0.2 AST 9 ALT 11 Alkaline Phosphatase 30 L Troponin I High Sens B-Natriuretic Peptide Total Protein 4.4 L Albumin 3.0 L Lipase 20 Urine Color Urine Appearance Urine pH Ur Specific [place] Urine Protein Urine Glucose (UA) Urine Ketones Urine Blood Urine Nitrite Ur Leukocyte Esterase Stool Occult Blood COVID-19 (JULIAN) COVID-19 [facility] 07/17/20 07/17/20 07/17/20 10:27 10:27 10:27 WBC RBC Hgb Hct MCV MCH MCHC RDW Plt Count MPV Immature Gran % (Auto) Neut % (Auto) Lymph % (Auto) [place] % (Auto) Eos % (Auto) Baso % (Auto) Lymph # (Auto) [place] # (Auto) Eos # (Auto) Baso # (Auto) Abs Immat Gran (auto) Absolute Neuts (auto) Absolute Nucleated RBC Nucleated RBC % (auto) PT INR Sodium Potassium Chloride Carbon Dioxide Anion Gap BUN Creatinine Estim Creat Clear Calc Estimated GFR Random Glucose Calcium Total Bilirubin Direct Bilirubin AST ALT Alkaline Phosphatase Troponin I High Sens 41.6 H B-Natriuretic Peptide 369 H Total Protein Albumin Lipase Urine Color Urine Appearance Urine pH Ur Specific [place] Urine Protein Urine Glucose (UA) Urine Ketones Urine Blood Urine Nitrite Ur Leukocyte Esterase Stool Occult Blood POSITIVE COVID-19 (JULIAN) Negative COVID-19 Clin Com See Note 07/17/20 07/17/20 07/17/20 11:54 17:05 20:37 WBC RBC Hgb 10.1 L 10.4 L Hct 29.5 L 29.8 L MCV MCH MCHC RDW Plt Count MPV Immature Gran % (Auto) Neut % (Auto) Lymph % (Auto) [place] % (Auto) Eos % (Auto) Baso % (Auto) Lymph # (Auto) [place] # (Auto) Eos # (Auto) Baso # (Auto) Abs Immat Gran (auto) Absolute Neuts (auto) Absolute Nucleated RBC Nucleated RBC % (auto) PT INR Sodium Potassium Chloride Carbon Dioxide Anion Gap BUN Creatinine Estim Creat Clear Calc Estimated GFR Random Glucose Calcium Total Bilirubin Direct Bilirubin AST ALT Alkaline Phosphatase Troponin I High Sens B-Natriuretic Peptide Total Protein Albumin Lipase Urine Color YELLOW Urine Appearance CLEAR Urine pH 7.5 Ur Specific [place] 1.015 Urine Protein TRACE Urine Glucose (UA) NEG Urine Ketones NEG Urine Blood NEG Urine Nitrite NEG Ur Leukocyte Esterase NEG Stool Occult Blood COVID-19 (JULIAN) COVID-19 Clin Com 07/18/20 07/18/20 07/18/20 02:30 06:25 06:25 WBC 6.8 RBC 3.07 L Hgb 10.3 L 10.0 L Hct 29.6 L 29.3 L MCV 95.4 MCH 32.6 MCHC 34.1 RDW 14.6 Plt Count 150 L MPV 11.7 Immature Gran % (Auto) 1.0 H Neut % (Auto) 65.5 Lymph % (Auto) 22.5 [place] % (Auto) 8.4 Eos % (Auto) 2.2 Baso % (Auto) 0.4 Lymph # (Auto) 1.5 [place] # (Auto) 0.6 Eos # (Auto) 0.2 Baso # (Auto) 0.0 Abs Immat Gran (auto) 0.07 H Absolute Neuts (auto) 4.4 Absolute Nucleated RBC 0.000 Nucleated RBC % (auto) 0.0 PT 12.4 INR 1.0 Sodium Potassium Chloride Carbon Dioxide Anion Gap BUN Creatinine Estim Creat Clear Calc Estimated GFR Random Glucose Calcium Total Bilirubin Direct Bilirubin AST ALT Alkaline Phosphatase Troponin I High Sens B-Natriuretic Peptide Total Protein Albumin Lipase Urine Color Urine Appearance Urine pH Ur Specific [place] Urine Protein Urine Glucose (UA) Urine Ketones Urine Blood Urine Nitrite Ur Leukocyte Esterase Stool Occult Blood COVID-19 (JULIAN) COVID-19 [employer] [facility] 07/18/20 06:25 WBC RBC Hgb Hct MCV MCH MCHC RDW Plt Count MPV Immature Gran % (Auto) Neut % (Auto) Lymph % (Auto) [place] % (Auto) Eos % (Auto) Baso % (Auto) Lymph # (Auto) [place] # (Auto) Eos # (Auto) Baso # (Auto) Abs Immat Gran (auto) Absolute Neuts (auto) Absolute Nucleated RBC Nucleated RBC % (auto) PT INR Sodium 141 Potassium 3.9 Chloride 111 H Carbon Dioxide 25 Anion Gap 9 L BUN 35 H Creatinine 1.70 H Estim Creat Clear Calc 40.7 Estimated GFR 39 Random Glucose 102 Calcium 8.5 D Total Bilirubin Direct Bilirubin AST ALT Alkaline Phosphatase Troponin I High Sens B-Natriuretic Peptide Total Protein Albumin Lipase Urine Color Urine Appearance Urine pH Ur Specific [place] Urine Protein Urine Glucose (UA) Urine Ketones Urine Blood Urine Nitrite Ur Leukocyte Esterase Stool Occult Blood COVID-19 (JULIAN) COVID-19 [employer] Airway Mallampati Class: II TM Dist: >3cm Neck ROM: Full Assessment and Plan Assessment Anesthesia Assessment: Anesthesia Plan Discussed and Chart Reviewed Final Anesthetic Review NPO: Yes ASA Class: III Final Preanesthetic Review: No Changes in Pt Med Stat, Meds/Allgs Chart Reviewed, Consent Obtained/Reviewed and Anes Risks/Benef Reviewed Patient Risk: Intermediate Procedure Risk: Low Assessment/Block/Sedation in SS: Assess/Block/Sedation-SS Anesthetic Plan Anesthetic Plan: MAC: Disposition: Standard PACU
--- NOTE | 2020-07-18 16:42 | P.BOP_ITS ---
Brief Operative Note Date of Service: 07/18/20 Pre-op diagnosis: Melena Post-op diagnosis: other (Gastric ulcer, Gastritis, Hiatal hernia) Procedure: EGD with biopsies Surgeon: Say Gardner Anesthesia: MAC Was an Cook Helper Fruit used for this Procedure?: No Estimated blood loss (mL): 3.0 Pathology: other (A. Gastric antrum B. Gastric ulcer) Condition: stable Disposition: PACU
--- NOTE | 2020-07-18 16:44 | PM.EVENT ---
Event Note Date of Service: 07/18/20 Event Note: GI-EGD-Full note dictated Findings: 1. Approx 2 cm gastric ulcer along the lesser curve at the angularis. Clean base, no bleeding, grossly benign. Biopsied margins. 2. Diffuse and somewhat friable gastritis-biopsied antrum x 3. 3. Hiatal hernia Rec: Omeprazole 40mg QD, advance diet, Rx Hpylori if positive, and avoid all ASA/NSAIDs vermin exterminator. If stable, he can be discharged later this evening as per his wishes. I will arrange for office follow up and F/U EGD as well. D/W his . Thanks
[2020-07-18] MEDS: Omeprazole 40 MG CAPSULE.DR PO (17:40)
--- NOTE | 2020-07-18 17:43 | P.DS_ITS ---
DS: Providers Provider Date of Service: 07/18/20 Date of admission: 07/17/20 13:54 Date of discharge: 07/18/20 Primary care physician: None Physician Admitting clinician: Barbie Thurston Attending physician on admission: David Dale Consults: 07/17/20 14:11 Consult to Gastroenterology Routine Consulting Provider: Say Gardner Reason for consultation: black tarry stool Has provider been notified: No Attending physician on discharge: Lee Mlapah Discharging clinician: Barbie Thurston DS: Diagnosis Discharge Diagnosis (1) Melena: Status: Acute DS: Medications Discharge Medications Home Medications: Home Medications Medication Instructions Recorded Confirmed amlodipine 1 tab PO DAILY 07/17/20 07/17/20 lisinopril 1 tab PO DAILY 07/17/20 07/17/20 metoprolol tartrate 50 mg PO BEDTIME 07/17/20 07/17/20 metoprolol tartrate 100 mg PO DAILY 07/17/20 07/17/20 Previous Rx's Medication Instructions Recorded omeprazole 40 mg PO DAILY #30 cap 07/18/20 terazosin 4 mg PO DAILY #60 cap 07/18/20 DS: Summary Hospital Course Hospital Course: 75-year-old man presenting to the ER with complaints of black stool he reports on that he noticed in the toilet that his stool was black. He reports a history of gastric ulcer in the past. Denies taking large doses of NSAIDs. He is not on any anticoagulation. He developed some flank pain and decided to come to the ER to be evaluated. Denies any history of abdominal pain, nausea, vomiting, diarrhea. He reports only drinking about 1 beer a day if that. His initial hemoglobin and hematocrit was 10.00/29.3, creatinine 2.15 with history of chronic kidney disease, initial troponin 41.6 with no complaints of chest pain, BNP 369, stool occult was positive, COVID-[address] showed mild diverticulosis with no evidence of diverticulitis or colitis. He did have a very distended bladder suggestive of a bladder outlet obstruction ho wever he urinated 600ml in the ED. he was given IV Protonix and 1 L of IV fluid in the ER. He will be admitted for further management treatment of acute upper GI bleed. GI bleed secondary to gastric ulcer and gastritis. Seen and examined by Gastroenterology, EGD showed the previous. Treated with IV Protonix twice daily while inpatient. Will continue omeprazole 40 mg daily as outpatient. Follow up with Gastroenterology as needed for further workup. He is to return to the emergency room if he notices worsening bleeding. Urinary retention. Abdominal pelvic CT is done for GI bleed also showed distended bladder with question of bladder outlet obstruction. History of BPH and urinary retention in the past. Has also self catheterized. He has been seen by Urology in the past it is recommended that he sees [facility] urologist for further workup for this. Patient insists on self catheterizing, during the hospitalization he refused the Deen catheter. At one point he had catheterize for 2500 mL but never complained of any urinary discomfort or abdominal pain. His creatinine remained stable at 1.7 , with history of chronic kidney disease. He is referred to see Dr. Tee Mosquera as an outpatient within 1 week. History Terazosin was increased to 4 mg daily. He is to return to the emergency room if he has difficulty urinating or self catheterizing. Chronic kidney disease. Remained stable during hospitalization. Attending: Dr. Torrez Time Spent with Patient Time attestation: Total time spent providing and/or coordinating discharge services: Discharge coordination time: Greater than 30 minutes Physical Exam Vital Signs: Vital Signs: Last Vital Signs Temp 97.2 F 07/18/20 17:00 Pulse 78 07/18/20 17:15 Resp 17 07/18/20 17:15 BP 120/65 07/18/20 17:15 Pulse Ox 100 07/18/20 17:15 Body Mass Index 27.9 Appearing in no acute distress head is normocephalic atraumatic eyes pupils are PERRLA sclera is anicteric mouth throat mucous membranes are intact and moist neck is supple no lymphadenopathy, no JVD noted lung sounds are clear to auscultation heart regular rate rhythm, clear S1, S2 positive bowel sounds, abdomen is soft, nontender neuro patient is alert x3, no focal deficits DS: Data Data Completed and Pending Pending studies at discharge: Pending at discharge 07/18/20 16:30 Surgical [PTH] Routine Labs on day of discharge: Laboratory Results - last 24 hr 07/17/20 07/18/20 07/18/20 20:37 02:30 06:25 WBC RBC Hgb 10.4 L 10.3 L Hct 29.8 L 29.6 L MCV MCH MCHC RDW Plt Count MPV Immature Gran % (Auto) Neut % (Auto) Lymph % (Auto) [place] % (Auto) Eos % (Auto) Baso % (Auto) Lymph # (Auto) [place] # (Auto) Eos # (Auto) Baso # (Auto) Abs Immat Gran (auto) Absolute Neuts (auto) Absolute Nucleated RBC Nucleated RBC % (auto) PT 12.4 INR 1.0 Sodium Potassium Chloride Carbon Dioxide Anion Gap BUN Creatinine Estim Creat Clear Calc Estimated GFR Random Glucose Calcium 07/18/20 07/18/20 06:25 06:25 WBC 6.8 RBC 3.07 L Hgb 10.0 L Hct 29.3 L MCV 95.4 MCH 32.6 MCHC 34.1 RDW 14.6 Plt Count 150 L MPV 11.7 Immature Gran % (Auto) 1.0 H Neut % (Auto) 65.5 Lymph % (Auto) 22.5 [place] % (Auto) 8.4 Eos % (Auto) 2.2 Baso % (Auto) 0.4 Lymph # (Auto) 1.5 [place] # (Auto) 0.6 Eos # (Auto) 0.2 Baso # (Auto) 0.0 Abs Immat Gran (auto) 0.07 H Absolute Neuts (auto) 4.4 Absolute Nucleated RBC 0.000 Nucleated RBC % (auto) 0.0 PT INR Sodium 141 Potassium 3.9 Chloride 111 H Carbon Dioxide 25 Anion Gap 9 L BUN 35 H Creatinine 1.70 H Estim Creat Clear Calc 40.7 Estimated GFR 39 Random Glucose 102 Calcium 8.5 D Discharge Plan Discharge Anticipated Discharge Date/Time: 07/18/20 17:34 Patient Disposition: Home, Self-Care Discharge Diagnosis: Urinary retention Gastric ulcer Gastritis Referrals: Tee Mosquera MD [Physician] - 1 Week (Urinary retention, self catheterizing) PhysicianGrazyna [Primary Care Provider] - 1 Week Say Gardner [Physician] - None Discharge Medications: New terazosin 2 mg capsule 4 mg PO DAILY Qty: 60 RF: 0 omeprazole 40 mg capsule,delayed release(DR/EC) 40 mg PO DAILY Qty: 30 RF: 0 Continued metoprolol tartrate 100 mg tablet 100 mg PO DAILY RF: 0 metoprolol tartrate 100 mg tablet 50 mg PO BEDTIME RF: 0 amlodipine 5 mg tablet 1 tab PO DAILY RF: 0 lisinopril 5 mg tablet 1 tab PO DAILY RF: 0 Discontinued terazosin 2 mg capsule 2 mg PO DAILY RF: 0 Discharge Orders: Discharge Order (Routine); Ordered 07/18/20 Ordered By: Barbie Thurston Diet: advance to usual diet Activity on Discharge: As tolerated Stand Alone Forms: Patient Portal Discharge page Care Plan Goals: Resolution of gastrointestinal bleeding Resolution of urinary retention symptoms Health Concerns: Urinary retention GI bleed secondary to gastric ulcer, gastritis Plan of Treatment: Follow-up with urologist, Dr. Tee Mosquera [phone] Follow-up with primary care provider as needed You will be sent home with self catheterization kits to catheterize at home as needed you may catheterize every 8 hours during the day if your unable to urinate on your own. Return to the emergency room if you notice increase in rectal bleeding or if your unable to urinate are having difficulty even self catheterizing. Assessment: See discharge summary
--- NOTE | 2020-07-18 20:55 | OP_ITS ---
SURGEON: Say Gardner MD INDICATIONS: The patient presents for evaluation of upper GI bleeding. Full consent has been obtained from him for this, including risks of bleeding and perforation. PREOPERATIVE DIAGNOSIS: Upper gastrointestinal bleeding. POSTOPERATIVE DIAGNOSIS: PROCEDURE PERFORMED: Esophagogastroduodenoscopy with biopsies. ESTIMATED BLOOD LOSS: COMPLICATIONS: ANESTHESIA: Monitored anesthesia care. ASSISTANTS: SPECIMENS: POSTOPERATIVE DIAGNOSES: Upper gastrointestinal bleeding, gastric ulcer, gastritis, hiatal hernia. DESCRIPTION OF PROCEDURE: The patient was placed in the left lateral decubitus position. The Olympus video gastroscope was passed in the posterior oropharynx and upper esophagus under direct vision. The scope was passed slowly to the distal esophagus. The gastroesophageal junction appeared normal at 39 cm. There was no sign of any esophagitis, ulceration, nor varices. There was a small hiatal hernia. The scope was advanced to pylorus and the duodenum was cannulated to the descending portion. The duodenum including the bulb appeared normal without mass or ulceration. The scope was withdrawn back into the stomach. The gastric antrum and body had fairly friable and diffuse gastritis. The scope was retroflexed visualizing the proximal stomach carefully, which also appeared to have a similar gastritis. In both the forward viewing and retroflexed positions, I was able to visualize an approximately 2 cm ulcer crater along the lesser curvature what appeared to be the region of the angularis. The ulcer crater was clean, without any sign of visible vessel nor bleeding. It appeared to be a grossly benign ulcer. The scope was straightened. Biopsies were obtained from the gastric antrum. I also obtained biopsies from the margins of the ulcer. The scope was withdrawn back in the esophagus. The esophageal mucosa appeared normal. The scope was withdrawn from the patient. He tolerated the procedure well and was returned to the recovery area in stable condition. IMPRESSION: 1. Gastric ulcer. 2. Gastritis. 3. Hiatal hernia. PLAN: The results of the biopsy will be checked. If Helicobacter pylori is present in the gastric biopsies, I would recommend treating that. He will be switched from IV PPI to omeprazole 40 mg daily. His diet will be advanced. At this point, he appears quite stable and I do think that if he wants to go home later this evening, that should be okay as there have been any signs of active bleeding and he appears very stable at the present time. If he wants to stay until the morning, that would also be fine and I would then repeat a blood count at that time. He will need to avoid all aspirin and NSAIDs long-term. I will make plans to see him in my office for a followup visit and then plan for a followup upper endoscopy given the size of the ulcer, although it does look benign. This has all been discussed with his today. MD GINGER Linn/DEBORA / [phone] MTDD
== END 2020-07-18 18:31 | disposition home or self-care (01) | DRG 378 ==
LOC: HO.ED 12:52 → HO.EDOVER 14:04 → HO.IMC 18:35
PROVIDERS: Internal Medicine; Admitting Provider Nurse Practitioner Acute Care; Emergency Provider Emergency Medicine; Visit Provider Nurse Practitioner Acute Care
PROC: 0DB78ZX Excision of Stomach, Pylorus, Via Natural or Artificial Opening Endoscopic, Diagnostic (ICD-10-PCS; principal; 2020-07-18 14:30)
DX: K29.71 Gastritis, unspecified, with bleeding (principal); N18.4 Chronic kidney disease, stage 4 (severe); K25.4 Chronic or unspecified gastric ulcer with hemorrhage; I12.9 Hypertensive chronic kidney disease with stage 1 through stage 4 chronic kidney disease, or unspecified chronic kidney disease; K44.9 Diaphragmatic hernia without obstruction or gangrene; K21.9 Gastro-esophageal reflux disease without esophagitis; N40.1 Benign prostatic hyperplasia with lower urinary tract symptoms; R33.8 Other retention of urine; Z20.822 Contact with and (suspected) exposure to COVID-19; Z87.891 Personal history of nicotine dependence; Z88.6 Allergy status to analgesic agent; Z79.899 Other long term (current) drug therapy
CPT/HCPCS: 36415; 71045; 74176; 80048; 80076; 81003; 82272; 83690; 83880; 84484; 85014; 85018; 85025; 85610; 87635; 88305; 88342; 96374; 99285; J2370

== ENCOUNTER 2020-08-02 11:58 | Inpatient (IN) | payer MEDICARE, SELFPAY ==
[2020-08-02] VITALS (12 sets, daily range): BP systolic 107–156; BP diastolic 67–95; PULSE 67–127; RESP 14–18; TEMP 36.1–37; O2SAT 96–100; BMI 24.3; BMI 23.2
--- NOTE | 2020-08-02 | ECG_ITS ---
Test Reason : IRREG RAD PULSE Blood Pressure : / mmHG Vent. Rate : 117 BPM Atrial Rate : 117 BPM P-R Int : 192 ms QRS Dur : 144 ms QT Int : 378 ms P-R-T Axes : 000 -32 142 degrees QTc Int : 527 ms Sinus tachycardia with Premature supraventricular complexes Left anterior fascicular block Right bundle branch block Left ventricular hypertrophy with repolarization abnormality Cannot rule out Septal infarct , age undetermined Abnormal ECG No previous ECGs available Referred By: Chas Baxter Electronically Signed By:RIO LEW MD
--- NOTE | 2020-08-02 12:27 | ED.CHESTPAIN ---
HPI - Chest Pain General Chief Complaint: Chest Pain Stated Complaint: chest pain Time Seen by Provider: 08/02/20 12:27 Source: patient Mode of arrival: ambulatory Limitations: no limitations History of Present Illness HPI narrative: Patient lightheaded with neck pain with standing. Patient admitted to [facility] [place] for esophageal ulceration 07/18. No history of heart problems. Patient states that he has had symptoms since being discharged from hospital complaint: chest heaviness Onset (ago): week(s) Timing of current episode: episodic Prior episodes: Yes Onset: other (standing) Pain location: substernal Pain radiation: neck Severity: moderate Quality: tightness Exacerbating factors: exertion Risk Factors Coronary artery disease risk factors: hyperlipidemia and hypertension Related Data Home Medications Medication Instructions Recorded Confirmed amlodipine 1 tab PO DAILY 07/17/20 07/17/20 lisinopril 1 tab PO DAILY 07/17/20 07/17/20 metoprolol tartrate 50 mg PO BEDTIME 07/17/20 07/17/20 metoprolol tartrate 100 mg PO DAILY 07/17/20 07/17/20 Previous Rx's Medication Instructions Recorded omeprazole 40 mg PO DAILY #30 cap 07/18/20 terazosin 4 mg PO DAILY #60 cap 07/18/20 Allergies Allergy/AdvReac Type Severity Reaction Status Date / Time aspirin [ASPIRIN] Allergy Unknown THINS Verified 08/02/20 12:12 BLOOD TOO MUCH Review of Systems Constitutional: Constitutional: Reports no additional constitutional complaints Eyes: Eyes: Reports no additional eye complaints ENT: Denies dizziness Cardiovascular: Cardiovascular: Reports no additional cardiovascular complaints Respiratory: Respiratory: Reports as per HPI Gastrointestinal: Gastrointestinal: Reports no additional gastrointestinal complaints Musculoskeletal: Musculoskeletal: Reports no additional musculoskeletal complaints Integumentary/Breasts: Skin/Breast: Denies rash Neurologic: Reports system reviewed and no additional complaints, except as documented, Denies dizziness and Denies Sensory deficit (Neuro) Psychiatric: Psychiatric: Denies anxiety PMF Past Medical History Medical History BPH (benign prostatic hyperplasia) CKD (chronic kidney disease), stage IV GERD (gastroesophageal reflux disease) HTN (hypertension) Rosacea Social History Social History Household Members: Spouse Housing: House Alcohol intake: current Alcohol intake frequency: a few times a month Smoking Status: Never smoker Second Hand Smoke Exposure: No Use of substances other than those prescribed or required for medical reasons: No Advance Directives: Yes Advance Directives on File: Yes Advance Directives Date on File: 07/17/20 Physical Exam Vital Signs: Vital Signs: Last Vital Signs Temp 98.6 F 08/02/20 16:03 Pulse 88 08/02/20 16:03 Resp 14 08/02/20 16:03 BP 120/76 08/02/20 16:03 Pulse Ox 96 08/02/20 16:03 Body Mass Index 24.3 Const: Other: elderly male lying in bed Nutritional Appearance: average body habitus Orientation/consciousness: oriented to person and patient oriented x3 Limitations: no limitations HENMT: Head: Yes normal to inspection Ears: external ears normal General nose exam: Normal external nose present Mouth: Normal oral and palatal mucosa present and oropharynx normal Throat: Yes posterior oropharynx normal Eyes: General: appearance normal, both eyes and all related structures Neck: Other: supple Neck: Yes normal visual inspection Chest: Chest palpation & inspection: normal inspection of the chest Resp: Auscultation: clear to auscultation bilaterally Cardio: Other: IRRR 3/6 NORMA Jugular venous distension: no JVD GI: Inspection: Yes normal to inspection Palpation (GI): Soft to palpation, nontender and No hepatosplenomegaly present Auscultation: normal bowel sounds : General: Yes no CVA tenderness Back/Spine/Pelvis: Back: no CVA tenderness Skin: General skin exam: no rashes or lesions noted Neuro: General: oriented to person and patient oriented x3 Cranial nerves: Yes CN's II-XII intact bilaterally Motor exam (neuro): 5/5 motor strength present throughout Sensory Exam: No Sensory deficit (Neuro) Extrem: General: Yes normal to inspection Psych: Appearance: grossly normal Course Course Course Narrative: Atrial fibrillation converted to sinus, troponin positive. despite ulceration I gave Lovenox and ASA for cardiac protection and afib with demand ischemia MDM - Chest Pain Differential Diagnosis Differential diagnosis: Likely unstable angina pectoris, atypical chest pain and chest pain Lab Data Result diagrams: 08/02/20 13:18 08/02/20 13:18 Labs: Lab Results 08/02/20 08/02/20 08/02/20 Range/Units 13:18 13:18 13:18 WBC 11.3 H (4.8-10.8) X10*3/uL RBC 3.52 L (4.60-5.80) X10*6/uL Hgb 11.2 L (14.0-18.0) g/dl Hct 32.2 L (42-52) % MCV 91.5 (80-98) fL MCH 31.8 (27.0-33.0) pg MCHC 34.8 (31.0-36.0) g/dl RDW 15.3 (11.0-16.0) % Plt Count 293 D (160-400) X10*3/uL MPV 10.9 (9.4-12.4) fL Immature Gran % (Auto) 2.3 H (0.0-0.4) % Neut % (Auto) 79.6 H (45-73) % Lymph % (Auto) 11.3 L (20-40) % [place] % (Auto) 5.7 (2-11) % Eos % (Auto) 0.9 (0-4) % Baso % (Auto) 0.2 (0-2) % Lymph # (Auto) 1.3 (1.2-4.9) X10*3/uL [place] # (Auto) 0.6 (0.1-1.2) X10*3/uL Eos # (Auto) 0.1 (0.0-0.4) X10*3/uL Baso # (Auto) 0.0 (0.0-0.2) X10*3/uL Abs Immat Gran (auto) 0.26 H (0.00-0.03) X10*3/uL Absolute Neuts (auto) 9.0 H (2.0-8.3) X10*3/uL Absolute Nucleated RBC 0.000 (0.0-0.012) X10*3/uL Nucleated RBC % (auto) 0.0 (0.0-0.2) /100WBC PT (10.8-13.0) SEC INR (0.9-1.1) APTT (24.1-38.0) SEC Sodium 141 (135-145) mmol/L Potassium 3.5 (3.3-5.1) mmol/L Chloride 114 H (96-108) mmol/L Carbon Dioxide 16 L (22-29) mmol/L Anion Gap 15 (12-20) BUN 22 H (9-16) mg/dL Creatinine 2.06 H (0.5-1.4) mg/dL Estim Creat Clear Calc 34.9 Estimated GFR 31 Random Glucose 119 H (60-115) mg/dL Calcium 8.7 (8.4-10.2) mg/dL Troponin I High Sens 249.6 H* (<3.5-35.0) ng/L B-Natriuretic Peptide 180 H (<100) pg/mL COVID-19 (JULIAN) (Negative) COVID-19 Clin Com 08/02/20 08/02/20 Range/Units 13:18 15:25 WBC (4.8-10.8) X10*3/uL RBC (4.60-5.80) X10*6/uL Hgb (14.0-18.0) g/dl Hct (42-52) % MCV (80-98) fL MCH (27.0-33.0) pg MCHC (31.0-36.0) g/dl RDW (11.0-16.0) % Plt Count (160-400) X10*3/uL MPV (9.4-12.4) fL Immature Gran % (Auto) (0.0-0.4) % Neut % (Auto) (45-73) % Lymph % (Auto) (20-40) % [place] % (Auto) (2-11) % Eos % (Auto) (0-4) % Baso % (Auto) (0-2) % Lymph # (Auto) (1.2-4.9) X10*3/uL [place] # (Auto) (0.1-1.2) X10*3/uL Eos # (Auto) (0.0-0.4) X10*3/uL Baso # (Auto) (0.0-0.2) X10*3/uL Abs Immat Gran (auto) (0.00-0.03) X10*3/uL Absolute Neuts (auto) (2.0-8.3) X10*3/uL Absolute Nucleated RBC (0.0-0.012) X10*3/uL Nucleated RBC % (auto) (0.0-0.2) /100WBC PT 13.4 H (10.8-13.0) SEC INR 1.1 (0.9-1.1) APTT 31.5 (24.1-38.0) SEC Sodium (135-145) mmol/L Potassium (3.3-5.1) mmol/L Chloride (96-108) mmol/L Carbon Dioxide (22-29) mmol/L Anion Gap (12-20) BUN (9-16) mg/dL Creatinine (0.5-1.4) mg/dL Estim Creat Clear Calc Estimated GFR Random Glucose (60-115) mg/dL Calcium (8.4-10.2) mg/dL Troponin I High Sens (<3.5-35.0) ng/L B-Natriuretic Peptide (<100) pg/mL COVID-19 (JULIAN) Negative (Negative) COVID-19 Clin Com See Note ECG Data ECG #1: Attestation: I personally reviewed and interpreted this ECG as follows: Interpretation: atrial fibrillation rate 117, RBBB, no ischemia ECG #2: Attestation: I personally reviewed and interpreted this ECG as follows: Interpretation: sinus 94, RBBB, no st or twave changes Critical Care Time Critical Care Time Attestation: I spent 40 minutes of critical care, with interventions, assessments, speaking to patient, consultants, and family. Discharge Plan Discharge Clinical Impression: Acute [id number] myocardial infarction Atrial fibrillation Qualifiers: Atrial fibrillation type: paroxysmal Qualified Code(s): I48.0 - Paroxysmal atrial fibrillation Patient Disposition: Admitted As Inpatient
--- NOTE | 2020-08-02 13:05 | ECG_ITS ---
Test Reason : REPEAT Blood Pressure : / mmHG Vent. Rate : 094 BPM Atrial Rate : 094 BPM P-R Int : 184 ms QRS Dur : 154 ms QT Int : 422 ms P-R-T Axes : 057 -61 068 degrees QTc Int : 527 ms Sinus rhythm with Premature supraventricular complexes Right bundle branch block Left anterior fascicular block Bifascicular block Septal infarct (cited on or before 02-AUG-2020) Abnormal ECG When compared with ECG of 02-AUG-2020 12:09, Serial changes of Septal infarct Present Referred By: Chas Baxter Electronically Signed By:RIO LEW MD
[2020-08-02 13:25] LABS: MANUAL DIFF FLAG NO
[2020-08-02 13:29] LABS: Basophils Percent Auto 0.2 % (0-2); Eosinophils Absolute Auto 0.1 X10*3/uL (0.0-0.4); Eosinophils Percent Auto 0.9 % (0-4); Hematocrit 32.2 % (42-52); Hemoglobin 11.2 g/dl (14.0-18.0); Imm Gran Abs Auto 0.26 X10*3/uL (0.00-0.03); Imm Gran Pct Auto 2.3 % (0.0-0.4); Lymphocytes Absolute Auto 1.3 X10*3/uL (1.2-4.9); Lymphocytes Percent Auto 11.3 % (20-40); Mean Corpuscular HGB Conc 34.8 g/dl (31.0-36.0); Mean Corpuscular Hemoglobin 31.8 pg (27.0-33.0); Mean Corpuscular Volume 91.5 fL (80-98); Mean Platelet Volume 10.9 fL (9.4-12.4); Monocytes Absolute Auto 0.6 X10*3/uL (0.1-1.2); Monocytes Percent Auto 5.7 % (2-11); Neutrophils Percent Auto 79.6 % (45-73); Platelet Count 293 X10*3/uL (160-400); Red Blood Count 3.52 X10*6/uL (4.60-5.80); Red Cell Distribution Width 15.3 % (11.0-16.0); White Blood Count 11.3 X10*3/uL (4.8-10.8)
[2020-08-02 13:35] LABS: INTERNATIONAL NORM RATIO 1.1 (0.9-1.1); Prothrombin Time 13.4 SEC (10.8-13.0)
[2020-08-02 13:37] LABS: Partial Thromboplastin Time 31.5 SEC (24.1-38.0)
[2020-08-02] MEDS: dilTIAZem HCL 50 MG/10 ML VIAL 10 MG IVPUSH ×2 (13:41→15:23)
--- NOTE | 2020-08-02 13:49 | PC.NURSE ---
Pt reports since d/c here for gastric ulcer feeling chest pressure and left sided neck pain to right side as well as heart palpitations. Denies discomfort while laying flat on stretcher at this time. Breathing even/unlabored. A fib on tele. Cardizem given as ordered. Awaiting coags prior to Lovenox administration. Speech is clear. Neuroas are intact.
[2020-08-02 13:56] LABS: Anion Gap 15 (12-20); Blood Urea Nitrogen 22 mg/dL (9-16); Calcium 8.7 mg/dL (8.4-10.2); Carbon Dioxide 16 mmol/L (22-29); Chloride 114 mmol/L (96-108); Creatinine Clr Calc Pharmacy 34.9; Estimated Glomerular Filt Rate 31; Glucose Random 119 mg/dL (60-115); Potassium 3.5 mmol/L (3.3-5.1); Sodium 141 mmol/L (135-145)
[2020-08-02 14:12] LABS: B Type Natriuretic Peptide 180 pg/mL (<100); Troponin-I High Sensitivity 249.6 ng/L (<3.5-35.0)
[2020-08-02] MEDS: Enoxaparin Sodium 100 MG/ML SYRINGE 85 MG SUBCUT (14:20)
[2020-08-02] MEDS: Aspirin Enteric Coated 81 MG TABLET.DR 162 MG PO (15:22)
[2020-08-02 15:54] LABS: COVID-19 Test Negative (Negative); IDNOW Serial# 9DD0AD1C
--- NOTE | 2020-08-02 16:10 | PC.NURSE ---
Repeat troponin at this time
--- NOTE | 2020-08-02 16:21 | PM.IMHP ---
History of Present Illness Date of Service: 08/02/20 Chief Complaint: Lightheadedness, chest discomfort A 75 years old male with PMH of GERD, CKD, gastric ulcer, HTN among others who presented to the hospital complaining of worsening lightheadedness and chest discomfort specially upon standing up for the last 2 weeks. The patient was recently discharged from the hospital after an episode of gastric ulcers stabilized and started on treatment. Since the hospital discharge he did not feel he went back to his baseline as he continued to complain of weakness and lightheadedness upon standing up with feeling very short of breath with ambulation. He reports losing weight of almost 30 lb over the last few months bed decreased oral intake after leaving the hospital as part of diet. In the emergency blood work was significant for elevated troponin of 250 and evident of metabolic acidosis with bicarb of 16.. Patient was admitted to the hospital for further evaluation and treatment. Review of Systems Review of Systems: No fever, chills but reports increased generalized weakness No chest pain, but feels irregularities and palpitation Dyspnea on exertion, no coughing No abdominal pain, nausea or vomiting No urinary symptoms No any rash or wounds [facility] Medical History (Updated 08/03/20 @ 10:38 by Daniel Torres MD) BPH (benign prostatic hyperplasia) CKD (chronic kidney disease), stage IV GERD (gastroesophageal reflux disease) HTN (hypertension) Rosacea Social History Household Members: Spouse Housing: House Do you presently have visiting nurse or other home services: No Alcohol intake: current Alcohol intake frequency: a few times a month Smoking Status: Never smoker Second Hand Smoke Exposure: No Use of substances other than those prescribed or required for medical reasons: No Currently Displaying Signs/Symptoms of Drug Intoxication Withdrawal: No Have you been hit, kicked, punched, or otherwise hurt by someone within the past year? If so, by whom?: No Do you feel safe in your current relationship?: Yes Is there a partner from a previous relationship who is making you feel unsafe now?: No Are you made to feel afraid or neglected: No Advance Directives: Yes Advance Directives on File: Yes Advance Directives Date on File: 07/17/20 Do you have thoughts of harming others: None Do you have a plan to hurt others: No Plan Recently lost weight without trying: Yes How much weight loss: 24-33 pounds Eating poorly because of decreased appetite: Yes Nutrition screen score: 6 Nutrition Risks: Poor intake 0-25% >4 days service: No Current occupational status: retired Meds Allergies Allergy/AdvReac Type Severity Reaction Status Date / Time aspirin [ASPIRIN] Allergy Unknown THINS Verified 08/02/20 12:12 BLOOD TOO MUCH Home Medications Medication Instructions Recorded Confirmed Last Taken Type cholecalciferol (vitamin D3) 25 mcg PO DAILY 08/02/20 08/02/20 Unknown History cyanocobalamin (vitamin B-12) 1,000 mcg PO DAILY 08/02/20 08/02/20 Unknown History glycosamine 1 tab PO DAILY 08/02/20 Unknown History magnesium 1 tab PO DAILY 08/02/20 Unknown History potassium citrate 1 tab PO DAILY 08/02/20 Unknown History saw palmetto 1 tab PO DAILY 08/02/20 Unknown History zinc 1 tab PO DAILY 08/02/20 Unknown History Physical Exam Vital Signs and Narrative: Vital Signs: Last Vital Signs Temp 98.6 F 08/02/20 16:03 Pulse 88 08/02/20 16:03 Resp 14 08/02/20 16:03 BP 120/76 08/02/20 16:03 Pulse Ox 96 08/02/20 16:03 Body Mass Index 24.3 Const: Other: Constitutional : Alert, oriented, not in distress Neck : Normal inspection, Supple Cardiovascular : RRR with extra beats, S1 S2, no lower extremity edema Respiratory : Fair bilateral air entry, no crackles, wheezes or rhonchi Gastrointestinal: soft, lax, Normal bowel sounds, Non tender Skin : Warm/Dry, No rash Neurological : Alert & oriented x3, No focal deficit Results Labs CBC and Chem 7: 08/03/20 07:00 08/03/20 07:00 Labs: Laboratory Results - last 24 hr 08/02/20 08/02/20 08/02/20 13:18 13:18 13:18 MCV 91.5 MCH 31.8 MCHC 34.8 RDW 15.3 Plt Count 293 D MPV 10.9 Immature Gran % (Auto) 2.3 H Neut % (Auto) 79.6 H Lymph % (Auto) 11.3 L [place] % (Auto) 5.7 Eos % (Auto) 0.9 Baso % (Auto) 0.2 Lymph # (Auto) 1.3 [place] # (Auto) 0.6 Eos # (Auto) 0.1 Baso # (Auto) 0.0 Abs Immat Gran (auto) 0.26 H Absolute Neuts (auto) 9.0 H Absolute Nucleated RBC 0.000 Nucleated RBC % (auto) 0.0 PT INR APTT Anion Gap 15 Estim Creat Clear Calc 34.9 Estimated GFR 31 Random Glucose 119 H Calcium 8.7 Troponin I High Sens 249.6 H* B-Natriuretic Peptide 180 H COVID-19 (JULIAN) COVID-19 Clin Com 08/02/20 08/02/20 13:18 15:25 MCV MCH MCHC RDW Plt Count MPV Immature Gran % (Auto) Neut % (Auto) Lymph % (Auto) [place] % (Auto) Eos % (Auto) Baso % (Auto) Lymph # (Auto) [place] # (Auto) Eos # (Auto) Baso # (Auto) Abs Immat Gran (auto) Absolute Neuts (auto) Absolute Nucleated RBC Nucleated RBC % (auto) PT 13.4 H INR 1.1 APTT 31.5 Anion Gap Estim Creat Clear Calc Estimated GFR Random Glucose Calcium Troponin I High Sens B-Natriuretic Peptide COVID-19 (JULIAN) Negative COVID-19 Clin Com See Note Assessment and Plan (1) Acute [id number]-[id number] myocardial infarction: Status: Acute (2) Gastric ulcer: Status: Acute (3) GERD (gastroesophageal reflux disease): Status: Acute A 75 years old male with PMH of GERD, CKD, gastric ulcer, HTN among others who presented to the hospital complaining of worsening lightheadedness and chest discomfort specially upon standing up for the last 2 weeks. NSTEMI Abnormal EKG looking with bifascicular block Troponin elevated, to trend Started on full-dose Lovenox, to hold and start heparin drip baby aspirin Statin Start low-dose beta-marisol To get cardiology evaluation to do echo in the morning Lightheadedness, dizziness Seems to be secondary to orthostatic hypotension Check orthostatic vitals Will need to cut down on his blood pressure home medications, hold most Gastric ulcer Start b.i.d. omeprazole for the time being. BPH On terazosin DVT PPX Lovenox
[2020-08-02 16:59] LABS: Troponin-I High Sensitivity 206.5 ng/L (<3.5-35.0)
[2020-08-02] MEDS: Metoprolol Tartrate 50 MG TABLET PO (17:32)
--- NOTE | 2020-08-02 18:09 | PC.NURSE ---
Per Dr Zacarias, Heparin gtt to be started at 0100 (12 hrs after Lovenox) Pt noted to have ventricular activity on monitor, Dr Zacarias notified, Pt awaiting admission
--- NOTE | 2020-08-02 18:50 | PC.NURSE ---
SR on monitor noted, [employer] to Dr Zacarias for update
[2020-08-02] MEDS: Atorvastatin Calcium 40 MG TABLET PO (21:11)
[2020-08-02] MEDS: Metoprolol Tartrate 25 MG TABLET PO (21:11)
[2020-08-02] MEDS: traZODone HCL 25 MG HALFTAB PO (21:11)
[2020-08-02] MEDS: 0.9 % Sodium Chloride Flush 3 ML SYRINGE IVFLUSH (23:08)
[2020-08-03] VITALS (16 sets, daily range): BP systolic 92–155; BP diastolic 57–84; PULSE 65–97; RESP 16–20; TEMP 36–37; O2SAT 98–99; BMI 23.2
[2020-08-03 00:08] LABS: INTERNATIONAL NORM RATIO 1.2 (0.9-1.1); Prothrombin Time 14.4 SEC (10.8-13.0)
[2020-08-03 00:11] LABS: PTT Heparin Drip 41.4 SEC (53-77.9)
[2020-08-03] MEDS: Heparin Sodium,Porcine/1/2NS 25,000 UNIT/250 ML IV.SOLN 9.84 UNIT IVCONT (01:05)
[2020-08-03] MEDS: Omeprazole 40 MG CAPSULE.DR PO ×2 (05:53→17:34)
[2020-08-03 07:16] LABS: MANUAL DIFF FLAG NO
[2020-08-03 07:22] LABS: Basophils Percent Auto 0.4 % (0-2); Eosinophils Absolute Auto 0.2 X10*3/uL (0.0-0.4); Eosinophils Percent Auto 2.9 % (0-4); Hematocrit 27.9 % (42-52); Hemoglobin 9.4 g/dl (14.0-18.0); Imm Gran Abs Auto 0.21 X10*3/uL (0.00-0.03); Imm Gran Pct Auto 2.9 % (0.0-0.4); Lymphocytes Absolute Auto 1.6 X10*3/uL (1.2-4.9); Mean Corpuscular HGB Conc 33.7 g/dl (31.0-36.0); Mean Corpuscular Volume 92.1 fL (80-98); Mean Platelet Volume 11.3 fL (9.4-12.4); Monocytes Absolute Auto 0.6 X10*3/uL (0.1-1.2); Monocytes Percent Auto 8.2 % (2-11); Neutrophils Absolute Auto 4.7 X10*3/uL (2.0-8.3); Neutrophils Percent Auto 63.6 % (45-73); Platelet Count 243 X10*3/uL (160-400); Red Blood Count 3.03 X10*6/uL (4.60-5.80); Red Cell Distribution Width 15.7 % (11.0-16.0); White Blood Count 7.4 X10*3/uL (4.8-10.8)
[2020-08-03 07:25] LABS: INTERNATIONAL NORM RATIO 1.2 (0.9-1.1); Prothrombin Time 14.6 SEC (10.8-13.0)
[2020-08-03 07:28] LABS: PTT Heparin Drip 98.7 SEC (53-77.9)
--- NOTE | 2020-08-03 08:11 | MHC.CM.PN ---
CM met with Patient at bedside and addressed IMM with him, providing him with the original and placing a copy on the chart. Patient lives in a house with his /HCP/Sumi @ [phone], had no prior services/DME and he is presently looking for a PCP. Patient's goal is to return home/no services (no PCP) and CM has initiated and will follow for dc planning. Patient also has an involved Son.
[2020-08-03 08:14] LABS: Anion Gap 12 (12-20); Blood Urea Nitrogen 20 mg/dL (9-16); Calcium 8.2 mg/dL (8.4-10.2); Carbon Dioxide 18 mmol/L (22-29); Chloride 116 mmol/L (96-108); Creatinine Clr Calc Pharmacy 38.5; Estimated Glomerular Filt Rate 35; Glucose Random 76 mg/dL (60-115); Potassium 3.5 mmol/L (3.3-5.1); Sodium 142 mmol/L (135-145)
[2020-08-03] MEDS: Metoprolol Tartrate 25 MG TABLET PO ×2 (08:17→20:16)
[2020-08-03] MEDS: 0.9 % Sodium Chloride Flush 3 ML SYRINGE IVFLUSH ×3 (08:18→20:17)
[2020-08-03] MEDS: Aspirin 81 MG TAB.CHEW PO (08:18)
--- NOTE | 2020-08-03 10:31 | P.CONCA_ITS ---
History of Present Illness History of Present Illness Date of Service: 08/03/20 Requesting physician: Dalia Akbar Consult reason: other (Acute coronary syndrome, orthostatic hypotension) Chief complaint: NStemi Narrative: We are asked to see Quang in cardiology consultation today for symptoms of chest discomfort with orthostatic lightheadedness. Quang was admitted about 2 weeks ago with GI bleeding and was found to have gastric ulcer. On discharge she was discharged on multiple medications including amlodipine and lisinopril. He subsequently was at home for about a week and subsequently started noticing that he was getting lightheaded when he would stand up associated with neck discomfort followed by significant chest pressure, 'feels like chest was exploding'. Symptoms resolved after few minutes of sitting down or lying down. He then subsequently checked his blood pressure noticed that his blood pressure systolic 90 and felt that with this was related to medications he was taking. He then self discontinued his amlodipine and subsequently discontinued lisinopril. However his blood pressure did not normalize any continued to have symptoms and therefore came to the hospital. On admission is EKG shows sinus tachycardia at bifascicular block with PACs and initial troponin was elevated in the range of 250. He was therefore admitted to the hospital. Subsequently this morning orthostatic vitals are consistent with orthostatic hypotension with blood pressure dropping from systolic 112 to systolic 92. In b ed he is feeling well. He is not having any chest discomfort. Subsequent troponin is down trending. No significant EKG changes. Cardiology consult was sought for further management plan. His hemoglobin is 9.4 compared to 11.2 before. However he says his stool has been clear and he has no longer has melena or is not vomiting blood. He has been taking all his medications. Review of Systems Constitutional: Constitutional: Reports no additional constitutional compl aints Cardiovascular: Cardiovascular: Reports chest pain (With lightheadedness), Denies rapid heart rate, Reports lightheadedness, Denies Loss of Consciousness, Denies palpitations and Denies dyspnea Respiratory: Respiratory: Reports no additional respiratory complaints and Denies dyspnea Gastrointestinal: Gastrointestinal: Reports no additional gastrointestinal complaints Genitourinary: Genitourinary: Reports no additional male genitourinary complaints Musculoskeletal: Musculoskeletal: Reports no additional musculoskeletal complaints Psychiatric: Psychiatric: Reports no additional psychiatric complaints Endocrine: Endocrine: Reports no additional endocrine complaints and Denies palpitations Hematologic/Lymphatic: Hematologic/Lymphatic: Reports no additional hematologic/lymphatic complaints [facility] Past Medical History Medical History (Updated 08/03/20 @ 10:38 by Daniel Torres MD) BPH (benign prostatic hyperplasia) CKD (chronic kidney disease), stage IV GERD (gastroesophageal reflux disease) HTN (hypertension) Rosacea Social History Social History Household Members: Spouse Housing: House Do you presently have visiting nurse or other home services: No Alcohol intake: current Alcohol intake frequency: a few times a month Smoking Status: Never smoker Second Hand Smoke Exposure: No Use of substances other than those prescribed or required for medical reasons: No Currently Displaying Signs/Symptoms of Drug Intoxication Withdrawal: No Have you been hit, kicked, punched, or otherwise hurt by someone within the past year? If so, by whom?: No Do you feel safe in your current relationship?: Yes Is there a partner from a previous relationship who is making you feel unsafe now?: No Are you made to feel afraid or neglected: No Advance Directives: Yes Advance Directives on File: Yes Advance Directives Date on File: 07/17/20 Do you have thoughts of harming others: None Do you have a plan to hurt others: No Plan Recently lost weight without trying: Yes How much weight loss: 24-33 pounds Eating poorly because of decreased appetite: Yes Nutrition screen score: 6 Nutrition Risks: Poor intake 0-25% >4 days service: No Current occupational status: retired Meds Allergies Allergy/AdvReac Type Severity Reaction Status Date / Time aspirin [ASPIRIN] Allergy Unknown THINS Verified 08/02/20 12:12 BLOOD TOO MUCH Active Medications: Current Medications Generic Name Dose Route Start Last Admin Trade Name Freq PRN Reason Stop Dose Admin Acetaminophen 650 mg 08/02/20 17:38 Acetaminophen 325 Mg Tablet PO Q6H PRN Pain, Mild (Pain Scale 1-3) Aspirin 81 mg 08/03/20 09:00 08/03/20 08:18 Aspirin 81 Mg Tab.Chew PO 81 mg DAILY RAUL Administration Atorvastatin Calcium 40 mg 08/02/20 21:00 08/02/20 21:11 Atorvastatin Calcium 40 Mg Tablet PO 40 mg BEDTIME RAUL Administration Heparin Sodium (Porcine) 3,300 unit 08/02/20 20:26 Heparin Sodium,Porcine 5,000 Unit/Ml Vial 40 unit/kg (3300 unit) IVPUSH BOLUS PRN 40 unit/kg - Heparin Protocol Heparin Sodium (Porcine) 6,600 unit 08/02/20 20:26 Heparin Sodium,Porcine 5,000 Unit/Ml Vial 80 unit/kg (6600 unit) IVPUSH BOLUS PRN 80 unit/kg - Heparin Protocol Heparin Sodium/Sodium Chloride 25,000 unit in 250 mls @ 0 mls/hr 08/03/20 01:00 08/03/20 08:59 IVCONT 9 units/kg/hr .Q0M RAUL 7.38 mls/hr Titration Protocol Per Protocol Metoprolol Tartrate 12.5 mg 08/03/20 09:00 08/03/20 08:57 Metoprolol Tartrate 25 Mg Tablet PO Not Given BID [facility] Protocol Omeprazole 40 mg 08/03/20 06:30 08/03/20 05:53 Omeprazole 40 Mg Capsule.Dr PO 40 mg BID@0630,1630 RAUL Administration Ondansetron HCl 4 mg 08/02/20 17:38 Ondansetron Hcl 4 Mg/2 Ml Vial IVPUSH Q8H PRN Nausea and Vomiting Pharmacy Consult 1 each 08/02/20 17:02 Consult Rx Perform Med Rec MISCELLANE ONCE PRN Consult order Sodium Chloride 3 ml 08/03/20 00:00 08/03/20 08:18 0.9 % Sodium Chloride Flush 3 Ml Syringe IVFLUSH 3 ml QSHIFT RAUL Administration Trazodone HCl 25 mg 08/02/20 20:56 08/02/20 21:11 Trazodone Hcl 25 Mg Halftab PO 25 mg BEDTIME PRN Administration Insomnia Home Medications Medication Instructions Recorded Confirmed Last Taken Type cholecalciferol (vitamin D3) 25 mcg PO DAILY 08/02/20 08/02/20 Unknown History cyanocobalamin (vitamin B-12) 1,000 mcg PO DAILY 08/02/20 08/02/20 Unknown History glycosamine 1 tab PO DAILY 08/02/20 Unknown History magnesium 1 tab PO DAILY 08/02/20 Unknown History potassium citrate 1 tab PO DAILY 08/02/20 Unknown History saw palmetto 1 tab PO DAILY 08/02/20 Unknown History zinc 1 tab PO DAILY 08/02/20 Unknown History Physical Exam Vital Signs: Vital Signs: Last Vital Signs Temp 97.3 F 08/03/20 07:44 Pulse 85 08/03/20 08:17 Resp 20 08/03/20 07:44 BP 92/57 L 08/03/20 08:17 Pulse Ox 99 08/03/20 07:44 Body Mass Index 23.2 Const: General: cooperative, comfortable, no acute distress, alert and awake Nutritional Appearance: average body habitus Orientation/consciousness: patient oriented x3 Limitations: no limitations HENMT: Head: Yes normocephalic and Yes atraumatic Neck: Neck: Yes trachea midline, Yes supple and Yes no JVD Resp: Effort & Inspection: normal respiratory effort Auscultation: clear to auscultation bilaterally Cardio: Jugular venous distension: no JVD Palpation: normal PMI Rate: regular rate Rhythm: abnormal rhythm with ectopic beats Heart sounds: S1 normal heart sound present and S2 normal heart sound present GI: Auscultation: normal bowel sounds Skin: General skin exam: no rashes or lesions noted Neuro: General: patient oriented x3 and no focal motor deficits Extrem: General: Yes no clubbing, cyanosis or edema Psych: Appearance: grossly normal Results Labs and Meds Result diagrams: 08/03/20 07:00 08/03/20 07:00 Lab results: Laboratory Results - last 24 hr 08/02/20 08/02/20 08/02/20 13:18 13:18 13:18 WBC 11.3 H RBC 3.52 L Hgb 11.2 L Hct 32.2 L MCV 91.5 MCH 31.8 MCHC 34.8 RDW 15.3 Plt Count 293 D MPV 10.9 Immature Gran % (Auto) 2.3 H Neut % (Auto) 79.6 H Lymph % (Auto) 11.3 L [place] % (Auto) 5.7 Eos % (Auto) 0.9 Baso % (Auto) 0.2 Lymph # (Auto) 1.3 [place] # (Auto) 0.6 Eos # (Auto) 0.1 Baso # (Auto) 0.0 Abs Immat Gran (auto) 0.26 H Absolute Neuts (auto) 9.0 H Absolute Nucleated RBC 0.000 Nucleated RBC % (auto) 0.0 PT INR APTT PTT (Heparin Protocol) Sodium 141 Potassium 3.5 Chloride 114 H Carbon Dioxide 16 L Anion Gap 15 BUN 22 H Creatinine 2.06 H Estim Creat Clear Calc 34.9 Estimated GFR 31 Random Glucose 119 H Calcium 8.7 Troponin I High Sens 249.6 H* B-Natriuretic Peptide 180 H COVID-19 (JULIAN) COVID-19 [employer] 08/02/20 08/02/20 08/02/20 13:18 15:25 16:08 WBC RBC Hgb Hct MCV MCH MCHC RDW Plt Count MPV Immature Gran % (Auto) Neut % (Auto) Lymph % (Auto) [place] % (Auto) Eos % (Auto) Baso % (Auto) Lymph # (Auto) [place] # (Auto) Eos # (Auto) Baso # (Auto) Abs Immat Gran (auto) Absolute Neuts (auto) Absolute Nucleated RBC Nucleated RBC % (auto) PT 13.4 H INR 1.1 APTT 31.5 PTT (Heparin Protocol) Sodium Potassium Chloride Carbon Dioxide Anion Gap BUN Creatinine Estim Creat Clear Calc Estimated GFR Random Glucose Calcium Troponin I High Sens 206.5 H* B-Natriuretic Peptide COVID-19 (JULIAN) Negative [email or web address] See Note 08/02/20 08/03/20 08/03/20 23:43 07:00 07:00 WBC 7.4 RBC 3.03 L Hgb 9.4 L Hct 27.9 L MCV 92.1 MCH 31.0 MCHC 33.7 RDW 15.7 Plt Count 243 MPV 11.3 Immature Gran % (Auto) 2.9 H Neut % (Auto) 63.6 Lymph % (Auto) 22.0 [place] % (Auto) 8.2 Eos % (Auto) 2.9 Baso % (Auto) 0.4 Lymph # (Auto) 1.6 [place] # (Auto) 0.6 Eos # (Auto) 0.2 Baso # (Auto) 0.0 Abs Immat Gran (auto) 0.21 H Absolute Neuts (auto) 4.7 Absolute Nucleated RBC 0.000 Nucleated RBC % (auto) 0.0 PT 14.4 H INR 1.2 H APTT PTT (Heparin Protocol) 41.4 L Sodium 142 Potassium 3.5 Chloride 116 H Carbon Dioxide 18 L Anion Gap 12 BUN 20 H Creatinine 1.86 H Estim Creat Clear Calc 38.5 Estimated GFR 35 Random Glucose 76 D Calcium 8.2 L Troponin I High Sens B-Natriuretic Peptide COVID-19 (JULIAN) COVID-[employer] 08/03/20 07:00 WBC RBC Hgb Hct MCV MCH MCHC RDW Plt Count MPV Immature Gran % (Auto) Neut % (Auto) Lymph % (Auto) [place] % (Auto) Eos % (Auto) Baso % (Auto) Lymph # (Auto) [place] # (Auto) Eos # (Auto) Baso # (Auto) Abs Immat Gran (auto) Absolute Neuts (auto) Absolute Nucleated RBC Nucleated RBC % (auto) PT 14.6 H INR 1.2 H APTT PTT (Heparin Protocol) 98.7 H D Sodium Potassium Chloride Carbon Dioxide Anion Gap BUN Creatinine Estim Creat Clear Calc Estimated GFR Random Glucose Calcium Troponin I High Sens B-Natriuretic Peptide COVID-19 (JULIAN) COVID-19 Clin Com Assessment and Plan (1) Acute [id number] myocardial infarction: Status: Acute Patient's symptoms of chest discomfort highly concerning happening in the setting of hypotension. This is suggestive underlying obstructive coronary artery disease with elevated troponin myocardial injury is highly likely that he might have underlying obstructive coronary artery disease. However he did just have recent GI bleed that complicates his management. At this time would avoid aspirin as well as anticoagulation. He does have had a drop in his hematocrit. He should be transfused couple more units. Continue metoprolol therapy to reduce myocardial ischemia and statin therapy. He will need ischemic evaluation based on the findings of echocardiogram. However at this time given his age, recent GI bleeding, kidney dysfunction will pursue noninvasive route unless there is significant wall motion abnormality that will need to be further evaluated by invasive cardiac catheterization. This was discussed with the patient in details. He understands and agrees. Continue IV hydration and RBC transfusion as needed for now given patient's unstable cardiac situation would advised to maintain hematocrit above 30 at all times. Continue to trend hemoglobin hematocrit closely. Case discussed with hospitalist team. Will follow with you. (2) HTN (hypertension): Status: Acute Procedures Date of Service Date of Service: 08/03/20
[2020-08-03] MEDS: Lidocaine 4 % Patch ADH..PATCH 1 PATCH TRANSDERMA (10:57)
[2020-08-03] MEDS: 0.9 % Sodium Chloride 1,000 ML 999 ML IV (10:57)
--- NOTE | 2020-08-03 14:15 | HO.PM.IMPN ---
Subjective Subjective Date of Service: 08/03/20 Interval History: the patient was seen and evaluated this morning Laying in bed, feels comfortable but complaining of neck pain Denies any more episodes of dizziness or lightheadedness Denies any fever, chills or shortness of breath No reported other overnight events. Review of Systems No fever, chills but reports increased generalized weakness No chest pain, denies any overnight palpitation Dyspnea on exertion, no coughing No abdominal pain, nausea or vomiting No urinary symptoms No any rash or wounds Physical Exam Vital Signs: Vital Signs: Last Vital Signs Temp 97.5 F 08/03/20 14:06 Pulse 68 08/03/20 14:06 Resp 20 08/03/20 14:06 BP 140/77 H 08/03/20 14:06 Pulse Ox 99 08/03/20 12:00 Body Mass Index 23.2 Const: Other: Constitutional : Alert, oriented, not in distress Neck : Normal inspection, Supple Cardiovascular : RRR with extra beats, S1 S2, no lower extremity edema Respiratory : Fair bilateral air entry, no crackles, wheezes or rhonchi Gastrointestinal: soft, lax, Normal bowel sounds, Non tender Skin : Warm/Dry, No rash Neurological : Alert & oriented x3, No focal deficit Objective Data Current Medications Generic Name Dose Route Start Last Admin Trade Name Freq PRN Reason Stop Dose Admin Acetaminophen 650 mg 08/02/20 17:38 Acetaminophen 325 Mg Tablet PO Q6H PRN Pain, Mild (Pain Scale 1-3) Atorvastatin Calcium 40 mg 08/02/20 21:00 08/02/20 21:11 Atorvastatin Calcium 40 Mg Tablet PO 40 mg BEDTIME RAUL Administration Lidocaine 1 patch 08/03/20 10:35 08/03/20 10:57 Lidocaine 4 % Patch Adh..Patch TRANSDERMA 1 patch DAILY RAUL Administration Protocol Metoprolol Tartrate 12.5 mg 08/03/20 09:00 08/03/20 08:57 Metoprolol Tartrate 25 Mg Tablet PO Not Given BID RAUL Protocol Omeprazole 40 mg 08/03/20 06:30 08/03/20 05:53 Omeprazole 40 Mg Capsule. PO 40 mg BID@0630,1630 RAUL Administration Ondansetron HCl 4 mg 08/02/20 17:38 Ondansetron Hcl 4 Mg/2 Ml Vial IVPUSH Q8H PRN Nausea and Vomiting Pharmacy Consult 1 each 08/02/20 17:02 Consult Rx Perform Med Rec MISCELLANE ONCE PRN Consult order Sodium Chloride 3 ml 08/03/20 00:00 08/03/20 08:18 0.9 % Sodium Chloride Flush 3 Ml Syringe IVFLUSH 3 ml QSHIFT RAUL Administration Trazodone HCl 25 mg 08/02/20 20:56 08/02/20 21:11 Trazodone Hcl 25 Mg Halftab PO 25 mg BEDTIME PRN Administration Insomnia Labs CBC & Chem 7: 08/03/20 07:00 08/03/20 07:00 Assessment and Plan (1) Acute [id number]-svzkhgegk myocardial infarction: Status: Acute (2) Gastric ulcer: Status: Acute (3) GERD (gastroesophageal reflux disease): Status: Acute Assessment and Plan: A 75 years old male with PMH of GERD, CKD, gastric ulcer, HTN among others who presented to the hospital complaining of worsening lightheadedness and chest discomfort specially upon standing up for the last 2 weeks. Chest pain Treated primarily as NSTEMI, anticoagulation held by Cardiology Abnormal EKG looking with bifascicular block Troponin elevated, went down Hold heparin drip today Hold baby aspirin Continue Statin Start low-dose beta-marisol Cardiology input appreciated, pursue noninvasive cardiac stress test Pending echo Acute on chronic anemia Hemoglobin level dropped to 9.4 this morning from baseline of around 11 to give a unit of blood Keep hematocrit above 30 Orthostatic hypotension Found on multiple blood pressure checks To give IV fluids cut down on his blood pressure home medications, hold most Gastric ulcer Continue b.i.d. omeprazole for the time being. Neck Pain to use lidocaine patches BPH On terazosin, to use doxazosin insisted DVT PPX Heparin
[2020-08-03] MEDS: Doxazosin Mesylate 1 MG TABLET PO (17:33)
[2020-08-03] MEDS: Heparin Sodium,Porcine 5,000 UNIT/ML VIAL 5000 UNIT SUBCUT (17:33)
--- NOTE | 2020-08-03 17:38 | CA_ITS ---
Transthoracic Echocardiogram Patient (Last, First, Middle): Quang Renee R Gender: Male Date of : 1945 Age: 75 Procedure Date: 08/03/2020 Procedure Type: Transthoracic Echocardiogram Location: [facility] Height: 177.8 cm Weight: 81.65 kg BSA: 2.00 m2 Heart Rate: bpm BP: 140 / 84 mmHg Gluing Machine Feeder: Referring MD: Dalia Akbar MD [employer] Manager: Daniel Torres MD Symptoms: NSTEMI Study Quality: Fair ECG Rhythm: Sinus with extra beats Conclusions: - 1. 1. Normal LV systolic function with mild LVH with moderate asymmetric septal hypertrophy with impaired relaxation filling pattern 2. Mildly dilated left atrium 3. Mild aortic regurgitation 4. Mildly dilated ascending aorta 5. Normal RV systolic pressure 6. No pericardial effusion Findings Left Ventricle Normal left ventricular size and systolic function. There is mildly increased left ventricular wall thickness. The visually estimated ejection fraction is between 60-65%. There is no dynamic left ventricular outflow tract obstruction. There is systolic anterior motion of the chordae of the mitral valve. Spectral Doppler is indicative of an impaired relaxation filling pattern. E/E prime ratio is between 8 and 15 consistent with indeterminate filling pressures. There is moderate septal asymmetric hypertrophy. Right Ventricle Normal right ventricular cavity size and systolic function. Atria The left atrium is mildly dilated. There is lipomatous hypertrophy of the interatrial septum. There is no evidence of interatrial shunt. The right atrium is normal in size. Aortic Valve There is mild thickening of the aortic valve. There is no aortic valve stenosis. There is mild aortic valve regurgitation. Mitral Valve There is mild anterior and posterior mitral leaflet thickening. There is trace mitral valve regurgitation. There is no mitral valve stenosis. Pulmonic Valve The pulmonic valve is likely normal. Tricuspid Valve Likely normal tricuspid valve structure and function. There is trace tricuspid valve regurgitation. The right ventricular systolic pressure is normal. There is no evidence of pulmonary hypertension. Great Vessels The pulmonary artery was not well visualized. There is mild dilatation of the ascending aorta measuring 4.13 cm. Venous The inferior vena cava is normal in size and collapses greater than 50% with inspiration. Pericardium/Pleural There is no evidence of pericardial effusion. Prior Study Comparison No prior study available for comparison. Measurements 2D Linear Measurements IVSd: 1.22 0.6-0.9/0.6-1.0 cm LVIDd: 4.84 3.9-5.3/4.2-5.9 cm LVIDd Index: 2.42 2.4-3.2/2.2-3.1 cm/m2 LVIDs: 2.76 2.0-3.6 cm LVPWd: 1.32 0.7-1.1 cm Ao Root: 3.80 2.1-3.5 cm LA Diam: 4.20 2.7-3.8/3.0-4.0 cm LAIDs Index: 2.10 1.5-2.3 cm/m2 LV Mass: 400.71 67-162/88-224 g LV Mass Index: 200.35 43-95/49-115 g/m2 LVOT Diam: 2.20 3.0+(-)1.3 cm Mitral Valve MV Pk E: 0.49 MV PK A: 0.84 MV Decel Time: 221.00 E/A: 0.60 E'Lateral: 7.94 E'Medial: 3.37 E/E' Med: 14.60 E/E' Lat: 6.20 PHT: 65.00 MVA PHT: 3.38 Decel [place]: 2.23 Aortic Valve AoV Pk Lennox: 1.59 AoV Mn Lennox: 0.97 AoV VTI: 0.34 AoV Pk Grad: 10.00 Aov Mn Grad: 5.00 AIDA Cont.VTI: 3.27 LVOT LVOT Pk Lennox: 1.47 LVOT Mn Lennox: 0.85 LVOT VTI: 0.30 LVOT Pk Grad: 9.00 LVOT Mn Grad: 4.00 LVOT Diam: 2.20 LVOT Area: 3.80 Diastolic Function MV Pk E: 0.49 MV Pk A: 0.84 E/A: 0.60 E'Medial: 3.37 E/E' Med: 14.60 E' Laterial: 7.94 E/E' Lat: 6.20 Tricuspid Valve TR Pk Lennox: 1.59 TR Pk Grad: 10.00 RA Press: 3.00 RVSP: 13.00 Great Vessels Aorta Ao Root-2D: 3.80 2.0-3.7 cm Ao Asc: 4.13 2.1-3.4 cm Pulmonary Valve PV Pk Lennox: 1.13 Peak PV Grad: 5.00 Updated in Other Vendor System with Status of Final Daniel Torres MD electronically signed on 08/03/2020 3:29:53 PM with status of Final
[2020-08-03] MEDS: Atorvastatin Calcium 40 MG TABLET PO (20:16)
[2020-08-04] MEDS: Heparin Sodium,Porcine 5,000 UNIT/ML VIAL 5000 UNIT SUBCUT (00:12)
[2020-08-04 03:30] VITALS: BP 109/65; PULSE 72; RESP 18; TEMP 36.8; O2SAT 100
[2020-08-04 07:14] VITALS: BP 124/62; PULSE 83; RESP 18; TEMP 37.2; O2SAT 99
[2020-08-04] MEDS: 0.9 % Sodium Chloride Flush 3 ML SYRINGE IVFLUSH (07:58)
[2020-08-04] MEDS: Lidocaine 4 % Patch ADH..PATCH 1 PATCH TRANSDERMA (07:58)
[2020-08-04 07:59] VITALS: BP 124/62; PULSE 83
[2020-08-04] MEDS: Metoprolol Tartrate 25 MG TABLET PO (07:59)
[2020-08-04 08:00] VITALS: BP 124/62; PULSE 83
[2020-08-04] MEDS: Doxazosin Mesylate 1 MG TABLET PO (08:00)
--- NOTE | 2020-08-04 10:29 | PM.PNCARD ---
Subjective Subjective Date of Service: 08/04/20 Principal diagnosis: Chest pain, lightheadedness. Interval history: Patient is very upset says that he has not been sleeping for 2 nights. He is intent on going home. He has been not cooperating with his care here. He refuses to go for a stress test. He refuses to get orthostatic vitals. Currently denies any chest pain. Has received 1 unit of packed RBC yesterday. Denying any blood work. Review of Systems Review of Systems Yes Other (Unable to obtain as patient is not cooperative) Physical Exam Vital Signs: Last Vital Signs Temp 98.9 F 08/04/20 07:14 Pulse 83 08/04/20 08:00 Resp 18 08/04/20 07:14 BP 124/62 08/04/20 08:00 Pulse Ox 99 08/04/20 07:14 Body Mass Index 23.2 Const General: no acute distress, alert, awake and other (Patient is agitated) Nutritional Appearance: average body habitus Orientation/consciousness: patient oriented x3 Neck Neck: Yes trachea midline, Yes supple and Yes no JVD Resp Effort & Inspection: normal respiratory effort Auscultation: clear to auscultation bilaterally Cardio Jugular venous distension: no JVD Rhythm: regular rhythm Heart sounds: S1 normal heart sound present and S2 normal heart sound present Neuro General: patient oriented x3 Extrem General: Yes no clubbing, cyanosis or edema Results Labs and Meds Result diagrams: 08/03/20 07:00 08/03/20 07:00 Lab results: Laboratory Results - last 24 hr 08/03/20 11:17 Blood Type O Positive Antibody Screen NEGATIVE Crossmatch See Detail Progress Note: A&P Assessment and plan (1) Acute [id number] myocardial infarction: Status: Acute Assessment and Plan: Patient present with chest pain with orthostatic lightheadedness with elevated troponin. His echocardiogram shows normal LV systolic function with mild LVH with possible [place] physiology which could explain his chest pain with low blood pressure. However there is high likelihood of underlying obstructive CAD which is prognostically significant. Her given his advanced age, recent bleeding as well as renal insufficiency will pursue noninvasive testing. Patient is currently refusing to undergo stress testing. I had a very detailed discussion about implications of not pursuing this line of workup. I am not comfortable discharging patient without having ischemic workup. Patient insisting on going home. I discussed with him that he will have to sign against medical advise, he said he is willing to do so. Risk of myocardial infarction, congestive heart failure as well as that was discussed with him. He understands. (2) Lightheadedness: Status: Acute Assessment and Plan: Lightheadedness which appears to be secondary to intravascular volume depletion and anemia. Has been receiving fluid and packed RBCs. Currently denying to have more vital signs taken at this point time as well as having blood test taken. Unsure if patient has improved completely, currently in supine position not have any light headedness. If patient decides to sign against medical advise, will try to set him up for outpatient testing if he is compliant with the same. Fall Risk Details Current Medications: Current Medications Generic Name Dose Route Start Last Admin Trade Name Freq PRN Reason Stop Dose Admin Acetaminophen 650 mg 08/02/20 17:38 Acetaminophen 325 Mg Tablet PO Q6H PRN Pain, Mild (Pain Scale 1-3) Atorvastatin Calcium 40 mg 08/02/20 21:00 08/03/20 20:16 Atorvastatin Calcium 40 Mg Tablet PO 40 mg BEDTIME RAUL Administration Doxazosin Mesylate 1 mg 08/03/20 14:30 08/04/20 08:00 Doxazosin Mesylate 1 Mg Tablet PO 1 mg DAILY RAUL Administration Protocol Heparin Sodium (Porcine) 5,000 unit 08/03/20 16:00 08/04/20 08:06 Heparin Sodium,Porcine 5,000 Unit/Ml Vial SUBCUT Not Given Q8H [facility] Lidocaine 1 patch 08/03/20 10:35 08/04/20 07:58 Lidocaine 4 % Patch Adh..Patch TRANSDERMA 1 patch DAILY [facility] Administration Protocol Metoprolol Tartrate 25 mg 08/03/20 21:00 08/04/20 07:59 Metoprolol Tartrate 25 Mg Tablet PO 25 mg BID RAUL Administration Protocol Omeprazole 40 mg 08/03/20 06:30 08/04/20 05:37 Omeprazole 40 Mg Capsule. PO Not Given BID@0630,1630 [facility] Ondansetron HCl 4 mg 08/02/20 17:38 Ondansetron Hcl 4 Mg/2 Ml Vial IVPUSH Q8H PRN Nausea and Vomiting Pharmacy Consult 1 each 08/02/20 17:02 Consult Rx Perform Med Rec MISCELLANE ONCE PRN Consult order Sodium Chloride 3 ml 05/19/21 00:00 08/04/20 07:58 0.9 % Sodium Chloride Flush 3 Ml Syringe IVFLUSH 3 ml QSHIFT RAUL Administration Trazodone HCl 25 mg 08/02/20 20:56 08/02/20 21:11 Trazodone Hcl 25 Mg Halftab PO 25 mg BEDTIME PRN Administration Insomnia Time Spent With Patient Time: Total time spent is greater than 50% in coordination of care (as documented) at patient's floor/unit and/or counseling patient: Time with patient: 15 - 24 minutes Procedures Date of Service Date of Service: 08/04/20
[2020-08-04 11:20] VITALS: BP 105/61; PULSE 86; RESP 17; TEMP 36.8; O2SAT 95
--- NOTE | 2020-08-04 13:15 | PC.NURSE ---
1300 PATIENT HAS BEEN REFUSING TREATMENT, AND TESTINGS THROUGHOUT THE DAY. STATES HE HAS NOT BEEN ABLE TO SLEEP AND IS SICK AND TIRED OF ALL HE TESTING IS BEING DONE. PATIENT HAD A STRESS TEST SCHEDULED TODAY, PT REFUSED, EXTENSIOVE NOW
--- NOTE | 2020-08-04 13:20 | PC.NURSE ---
1300 PT REFUSING CARE,TREATMENTS, AND TESTING THROUGHOUT THIS SHIFT..STATES THAT HE IS TIRED, HE HAS NOT BEEN ABLE TO SLEEP AND ALSO CAN'T DEAL WITH ALL THE CONSTANT TESTING THAT HE HAS BEEN GETTING AND IS READY TO GO HOME . HE WANTS TO SLEEP WITH NO INTERRUPTIONS. PATIENT WAS SCHEDULED FOR STRESS TEST BUT REFUSED IT DESPITE EXTENSIVE EDUCATION. CARDIOLOGY AND HOSPITALIST MADE AWARE. NOW PT STATES THAT HE IS LEAVING AMA. MD AND RN HUC OB MADE AWARE. PATIENT SIGNED AMA FORM, IV AND TELE REMOVED.
--- NOTE | 2020-08-04 13:29 | HO.PM.IMPN ---
Subjective Subjective Date of Service: 08/04/20 Interval History: the patient was seen and evaluated this morning Laying in bed, feels comfortable but complaining of neck pain as he did not sleep well overnight Denies any more episodes of dizziness or lightheadedness and does not want to go ahead with stress test as he was to leave home and do it as outpatient Denies any fever, chills or shortness of breath No reported other overnight events. Review of Systems No fever, chills but reports neck pain No chest pain, denies any overnight palpitation No shortness of breath, no coughing No abdominal pain, nausea or vomiting No urinary symptoms No any rash or wounds Physical Exam Vital Signs: Vital Signs: Last Vital Signs Temp 98.3 F 08/04/20 11:20 Pulse 86 08/04/20 11:20 Resp 17 08/04/20 11:20 BP 105/61 08/04/20 11:20 Pulse Ox 95 08/04/20 11:20 Body Mass Index 23.2 Const: Other: Constitutional : Alert, oriented, not in distress Neck : Normal inspection, Supple Cardiovascular : RRR with extra beats, S1 S2, no lower extremity edema Respiratory : Fair bilateral air entry, no crackles, wheezes or rhonchi Gastrointestinal: soft, lax, Normal bowel sounds, Non tender Skin : Warm/Dry, No rash Muscular, muscular pain in the neck area Neurological : Alert & oriented x3, No focal deficit Objective Data Current Medications Generic Name Dose Route Start Last Admin Trade Name Freq PRN Reason Stop Dose Admin Acetaminophen 650 mg 08/02/20 17:38 Acetaminophen 325 Mg Tablet PO Q6H PRN Pain, Mild (Pain Scale 1-3) Atorvastatin Calcium 40 mg 08/02/20 21:00 08/03/20 20:16 Atorvastatin Calcium 40 Mg Tablet PO 40 mg BEDTIME RAUL Administration Doxazosin Mesylate 1 mg 08/03/20 14:30 08/04/20 08:00 Doxazosin Mesylate 1 Mg Tablet PO 1 mg DAILY RAUL Administration Protocol Heparin Sodium (Porcine) 5,000 unit 08/03/20 16:00 08/04/20 08:06 Heparin Sodium,Porcine 5,000 Unit/Ml Vial SUBCUT Not Given Q8H RAUL Lidocaine 1 patch 08/03/20 10:35 08/04/20 07:58 Lidocaine 4 % Patch Adh..Patch TRANSDERMA 1 patch DAILY RAUL Administration Protocol Metoprolol Tartrate 25 mg 08/03/20 21:00 08/04/20 07:59 Metoprolol Tartrate 25 Mg Tablet PO 25 mg BID [facility] Administration Protocol Omeprazole 40 mg 08/03/20 06:30 08/04/20 05:37 Omeprazole 40 Mg Capsule.Dr HUDSON Not Given BID@0630,1630 [facility] Ondansetron HCl 4 mg 08/02/20 17:38 Ondansetron Hcl 4 Mg/2 Ml Vial IVPUSH Q8H PRN Nausea and Vomiting Pharmacy Consult 1 each 08/02/20 17:02 Consult Rx Perform Med Rec MISCELLANE ONCE PRN Consult order Sodium Chloride 3 ml 08/03/20 00:00 08/04/20 07:58 0.9 % Sodium Chloride Flush 3 Ml Syringe IVFLUSH 3 ml QSHIFT [facility] Administration Trazodone HCl 25 mg 08/02/20 20:56 08/02/20 21:11 Trazodone Hcl 25 Mg Halftab PO 25 mg BEDTIME PRN Administration Insomnia Labs CBC & Chem 7: 08/03/20 07:00 08/03/20 07:00 Assessment and Plan (1) Acute [id number] myocardial infarction: Status: Acute (2) Gastric ulcer: Status: Acute (3) GERD (gastroesophageal reflux disease): Status: Acute Assessment and Plan: A 75 years old male with PMH of GERD, CKD, gastric ulcer, HTN among others who presented to the hospital complaining of worsening lightheadedness and chest discomfort specially upon standing up for the last 2 weeks. Chest pain Treated primarily as NSTEMI, anticoagulation held by Cardiology Abnormal EKG looking with bifascicular block Troponin elevated, went down DC aspirin Continue Statin Continue low-dose beta-marisol Cardiology input appreciated, pursue noninvasive cardiac stress test Within normal echo Patient plan for stress test, this morning was refusing to do any further testing today and captain assistant going back home. I explained to him the risk related to that and the need to figure out what is going on with him before leaving the hospital. Corporate Account Executive and nursing staff also spoke with the patient but seems like he is going to leave AMA. Will talk to his family to address this issue and hopefully we can go ahead and to the test today and tomorrow. Acute on chronic anemia Hemoglobin level dropped to 9.4 this morning from baseline of around 11 Received a unit of blood Keep hematocrit above 30 Orthostatic hypotension Found on multiple blood pressure checks Received IV fluids Keep only on metoprolol b.i.d. and discontinue the rest of home blood pressure medications Gastric ulcer Continue b.i.d. omeprazole for the time being. Neck Pain to use lidocaine patches BPH On terazosin, to use doxazosin insisted DVT PPX Heparin
--- NOTE | 2020-08-04 15:41 | PM.EVENT ---
Event Note Date of Service: 08/04/20 Event Note: Discharge summary Discharge diagnoses Chest pain Orthostatic hypotension Acute on chronic anemia Patient was admitted for evaluation of chest pain. Plan was to do a stress test but he refused to stay in the hospital for the test. He decided to leave the hospital AMA and signed paper for that. I explained to him personally the risk of leaving the hospital without doing the full workup including having heart attacks, falls or even . He understands all of these concerns but still wanted to leave the hospital and to follow up with Cardiology as outpatient.
== END 2020-08-04 13:54 | disposition left against medical advice (07) | DRG 282 ==
LOC: HO.ED 16:21 → HO.IMC 19:06
PROVIDERS: Admitting Provider Student in an Organized Health Care Education/Training Program; Emergency Provider Emergency Medicine; Visit Provider Student in an Organized Health Care Education/Training Program
DX: I21.4 Non-ST elevation (NSTEMI) myocardial infarction (principal); I48.0 Paroxysmal atrial fibrillation; N40.0 Benign prostatic hyperplasia without lower urinary tract symptoms; K21.9 Gastro-esophageal reflux disease without esophagitis; Z20.822 Contact with and (suspected) exposure to COVID-19; I10 Essential (primary) hypertension; I95.1 Orthostatic hypotension; K25.9 Gastric ulcer, unspecified as acute or chronic, without hemorrhage or perforation; Z88.6 Allergy status to analgesic agent; Z79.899 Other long term (current) drug therapy
CPT/HCPCS: 36415; 80048; 83880; 84484; 85025; 85610; 85730; 86850; 86900; 86901; 86923; 87635; 93005; 93306; 96372; 96374; 96375; 99285; 99291; J1650; P9016